=== PATIENT | male | born 1945 | race Caucasian/White ===

== ENCOUNTER 2019-08-10 08:44 | Inpatient (IN) | payer OTHER ==
[~2019-08-10] VITALS: Ht 182.9 cm; Wt 88.5 kg
[~2019-08-10 08:44] MED LIST: ALLOPURINOL 10100 M1 PO; ALLOPURINOL 30300 M1 PO; BACTRIM DS TAB1 EACH PO; BACTROBAN CREAM30 G1; CLEOCIN HCL300 MG PO; COLCHICINE 0.60.6 M1 PO; FLUZONE 2045 MCG/011; HYDROCODON-ACE1 EACH PO; KEFLEX500 MG PO; LISINOPRIL10 MG PO; MINOCYCLINE HC100 M2 PO; PERCOCET 5-3251 EACH PO; PNEUMOVAX25 MCG/0.5; PREDNISONE 10 M10 M1 PO; UNKNOWN BP MED
[2019-08-10 08:51] VITALS: BP 186/88
[2019-08-10 09:30] LABS: ABSOLUTE BASOPHILS 0.1 thou/uL (0.0-0.2); ABSOLUTE EOSINOPHILS 0.5 thou/uL (0.0-0.7); ABSOLUTE LYMPHOCYTES 0.4 thou/uL (0.8-5.3); ABSOLUTE MONOCYTES 0.6 thou/uL (0.0-1.2); ABSOLUTE NEUTROPHILS 4.9 thou/uL (1.6-8.1); BASOPHILS 1.2 %; EOSINOPHILS 7.1 %; HEMATOCRIT 25.6 % (42.0-52.0); HEMOGLOBIN 8.9 gm/dL (14.0-18.0); LYMPHOCYTES 6.9 %; MCH 32.8 pg (26.0-34.0); MCHC 34.9 g/dL (28.0-37.0); MCV 93.9 fL (80.0-100.0); MONOCYTES 9.1 %; MPV 6.9 fl. (7.2-11.1); NUCLEATED RBCS 0 /100WBC; PLATELET COUNT* 170 thou/uL (150-400); POLYS 75.7 %; RBC 2.73 mil/uL (4.50-6.00); RDW-CV 15.1 % (10.5-14.5); WBC 6.5 thou/uL (4.0-11.0)
[2019-08-10 09:38] LABS: CALCIUM 7.7 mg/dL (8.5-10.1); CREATININE 3.3 mg/dL (0.6-1.3); POTASSIUM 4.6 mmol/L (3.5-5.1)
[2019-08-10 09:49] LABS: ALBUMIN 2.8 g/dL (3.4-5.0); TOTAL BILIRUBIN 0.3 mg/dL (<0.1-1.0); TOTAL PROTEIN 6.2 g/dL (6.4-8.2)
[2019-08-10 11:42] VITALS: BP 164/86
[2019-08-10 12:00] VITALS: BP 177/92
[2019-08-10 12:10] VITALS: BP 128/69
--- NOTE | 2019-08-10 13:12 | NUR ---
PATIENT ARRIVED FROM THE ER THIS AFTERNOON AT 1210. PATIENT IS ALERT AND ORIENTED X 4. HE C/O SEVERE BILATERAL LOWER LEG PAIN. HIS LEGS HAVE 3+ EDEMA. PATIENT PLACED ON TELE MONITOR. TELE SHOWS A FIB. PATIENT DENIES CHEST PAIN AND SOA.
--- NOTE | 2019-08-10 14:54 | 2DMMODE ---
[place] [address] 2 D/M-MODE ECHOCARDIOGRAM Name: WAGNER HAMEED Room: [address] ADM IN M.R.#: [id number] Admission: 08/10/19 Attend Phys: Ranjit Giordano Discharge: Date of : 47 Date of Service: 08/10/19 1453 Report #: [id number] THIS REPORT FOR: //name// APPROVED REPORT Study performed: 08/10/2019 13:15:37 EXAM: Comprehensive 2D, Doppler, and color-flow Echocardiogram Patient Location: Bedside BSA: 2.06 HR: 97 bpm BP: 177/92 mmHg Other Information Study Quality: Good Indications Atrial Fibrillation 2D Dimensions IVSd: 13.94 (7-11mm) LVOT Diam: 18.67 (18-24mm) LVDd: 47.65 mm PWd: 11.53 (7-11mm) Ascending Ao: 34.59 (22-36mm) LVDs: 41.26 (25-40mm) Aortic Root: 34.10 mm Volumes Left Atrial Volume (Systole) LA ESV Index: 64.00 mL/m2 Aortic Valve AoV Peak Mat.: 2.97 m/s AO Peak Gr.: 35.19 mmHg LVOT Max P.55 mmHg AO Mean Gr.: 23.90 mmHg LVOT Mean P.87 mmHg LVOT Max V: 1.18 m/s AO V2 VTI: 68.31 cm LVOT Mean V: 0.79 m/s MIRANDA (VTI): 1.11 cm2 LVOT V1 VTI: 27.81 cm Mitral Valve E/A Ratio: 3.30 MV Decel. Time: 185.07 ms MV E Max Mat.: 1.31 m/s MV PHT: 53.67 ms MVA (PHT): 4.10 [place]2 [place] [address] 2 D/M-MODE ECHOCARDIOGRAM Name: WAGNER HAMEED Room: [address] IN [facility].#: [id number] Admission: 08/10/19 Attend Phys: Ranjit Giordano Discharge: Date of : 47 Date of Service: 08/10/19 1453 Report #: [id number] TDI E/Lateral E': 10.08 E/Medial E': 10.92 Medial E' Mat.: 0.12 m/s Lateral E' Mat.: 0.13 m/s Pulmonary Valve PV Peak Mat.: 1.24 m/s PV Peak Gr.: 6.19 mmHg Tricuspid Valve RAP Estimate: 5.00 mmHg TR Peak Gr.: 56.68 mmHg RVSP: 61.68 mmHg PA Pressure: 61.68 mmHg Left Ventricle The left ventricle is normal size. There is normal LV segmental wall motion. Mild concentric left ventricular hypertrophy. Left ventricular systolic function is normal. The left ventricular ejection fraction is within the normal range. LVEF is 60-65%. Right Ventricle Right ventricle is dilated. The right ventricular systolic function is normal. Atria Left atrium is severely dilated. Right atrium is dilated. Aortic Valve The Aortic valve is sclerotic. No aortic regurgitation is present. Mild aortic stenosis. Mitral Valve There is mitral annular calcification. Mild mitral regurgitation. No evidence of mitral valve stenosis. Tricuspid Valve The tricuspid valve is normal in structure. Mild tricuspid regurgitation. estimated pa pressure 60 mm hg Pulmonic Valve The pulmonary valve is normal in structure. There is no pulmonic valvular regurgitation. Great Vessels The aortic root is normal in size. IVC is normal in size and collapses >50% [place] [address] 2 D/M-MODE ECHOCARDIOGRAM Name: WAGNER HAMEED Room: [address] IN [facility]#: [id number] Admission: 08/10/19 Attend Phys: Ranjit Giordano Discharge: Date of : 47 Date of Service: 08/10/19 1453 Report #: [id number] Pericardium There is no pericardial effusion. <Conclusion> Mild concentric left ventricular hypertrophy. LVEF is 60-65%. Left atrium is severely dilated. Mild aortic stenosis. Mild mitral regurgitation. Mild tricuspid regurgitation. estimated pa pressure 60 mm hg <ELECTRONICALLY SIGNED> By: Chadd Hutchison MD, [facility] 08/10/19 [phone] Chadd Hutchison MD, FAC /INF
[2019-08-10 16:00] VITALS: BP 161/71
[2019-08-10 20:00] VITALS: BP 160/70
[2019-08-11] VITALS (8 sets, daily range): BP systolic 123–165; BP diastolic 56–80
--- NOTE | 2019-08-11 04:59 | NUR ---
PT HAS C/O PAIN TO BLE WITH 3+ PITTING EDEMA. PARTIAL RELIEF OBTAINED WITH PRN MEDICATION. PT IS HAVING EPISODES OF DECREASED HEART RATE LOW 28 WITH QUICK REBOUND BACK INTO THE 40'S, PT REMAINS ASYMPTOMATIC DURING THESE EPISODES. STILL COLLECTING URINE FOR 24 HOUR UNINE TO BE COMPLETED AT 1800. NO OTHER CONCERNS NOTED AT THIS TIME. CURRENTLY IN BED WITH CALL LIGHT WITHIN REACH.
[2019-08-11 05:30] LABS: HEMATOCRIT 22.1 % (42.0-52.0); HEMOGLOBIN 7.6 gm/dL (14.0-18.0); MCH 32.2 pg (26.0-34.0); MCHC 34.2 g/dL (28.0-37.0); MPV 7.7 fl. (7.2-11.1); NUCLEATED RBCS 0 /100WBC; PLATELET COUNT* 148 thou/uL (150-400); RBC 2.35 mil/uL (4.50-6.00); WBC 4.1 thou/uL (4.0-11.0)
[2019-08-11 05:52] LABS: ALBUMIN 2.2 g/dL (3.4-5.0); CALCIUM 7.4 mg/dL (8.5-10.1); CREATININE 3.4 mg/dL (0.6-1.3); POTASSIUM 4.3 mmol/L (3.5-5.1); TOTAL BILIRUBIN 0.3 mg/dL (<0.1-1.0)
[2019-08-11 06:41] LABS: ABSOLUTE EOSINOPHILS 0.5 thou/uL (0.0-0.7); ABSOLUTE LYMPHOCYTES 0.9 thou/uL (0.8-5.3); ABSOLUTE MONOCYTES 0.1 thou/uL (0.0-1.2); ABSOLUTE NEUTROPHILS 2.5 thou/uL (1.6-8.1); PLATELET ESTIMATE DECREASED
[2019-08-11 06:42] LABS: ANISOCYTOSIS 1+; POIKILOCYTOSIS 1+
[2019-08-11 07:00] LABS: CHOLESTEROL 152 mg/dL (<200); HDL CHOLESTEROL 115 mg/dL (>40); LDL CHOLESTEROL 33 mg/dL (<100); SERUM ASSESSMENT Clear; TC:HDL 1.3 Ratio (Not establshd); TRIGLYCERIDE 24 mg/dL (<150); VLDL 5 mg/dL (<40)
[2019-08-11 09:07] LABS: HEPATITIS B SURFACE AG Negative (Negative)
--- NOTE | 2019-08-11 09:12 | CON ---
[address] [address] CONSULTATION Name: WAGNER HAMEED Room: [address] IN M.R.#: [id number] Admission: 08/10/19 Attend Phys: Alberto Amos Discharge: Date of : 47 Report #: [id number] THIS REPORT FOR: //name// CC: FAM unknown [facility] Ranjit Giordano DATE OF SERVICE: 08/10/2019 CARDIOLOGY CONSULTATION HISTORY OF PRESENT ILLNESS: The patient is a 73-year-old single white male who I was asked to see in the hospital today after he was noted to have elevated swelling of his feet. Unfortunately, there are no old records available here at [place]. The patient primarily gets his care at the [facility]. He has a long history of hypertension and has been on Cozaar. Recently, he was having problems with cataracts. He went to the [facility] to have cataract surgery. Apparently, he was noted to be in atrial fibrillation and the surgery was canceled. He was given Eliquis for anticoagulation, but was not cardioverted. He denied history of palpitations, lightheadedness, syncope, or chest pain. His blood pressure is elevated and he was started on amlodipine. He was scheduled to be readmitted for his cataract surgery. Since his discharge from the [facility], he has noticed some increased shortness of breath and swelling of his feet. He denied orthopnea or PND. He has had no fever or cough. Denied any pain in his legs. PAST MEDICAL HISTORY: He has had no surgical procedures. He does have a history of hypertension. No diabetes. No hyperlipidemia. He does have a history of gout. MEDICATIONS: Include hydralazine, terazosin, amlodipine, allopurinol, Eliquis. ALLERGIES: HE HAS PREVIOUS INTOLERANCE TO INDOMETHACIN. FAMILY HISTORY: His brother had coronary angioplasty. SOCIAL HISTORY: He lives with a friend in [facility]. He is currently , used to work in food services. No smoking. Rarely drinks alcohol. REVIEW OF SYSTEMS: He has had no history of stroke, asthma, peptic ulcer disease, liver disease, kidney disease, cancer, chronic skin condition, psychiatric illness. PHYSICAL EXAMINATION: GENERAL: Revealed an elderly male, lying in bed, [place] [address] CONSULTATION Name: WAGNER HAMEED Room: [address]#: [id number] Admission: 08/10/19 Attend Phys: Alberto Amos Discharge: Date of : 47 Report #: [id number] VITAL SIGNS: Blood pressure is 160/80, pulse is 60. He was afebrile. HEENT: He was anicteric. Conjunctivae are pink. Mucous membranes are moist. NECK: Veins appeared mildly distended. No carotid bruits. CHEST: Clear to auscultation. CARDIAC: Irregular rhythm, grade 3 holosystolic murmur at the apex. ABDOMEN: Soft. EXTREMITIES: Had severe pitting edema up to the mid tibial area. SKIN: Cool and dry. NEUROLOGIC: Nonfocal. DIAGNOSTIC DATA: His ECG on admission showed atrial fibrillation with a slow ventricular response rate, nonspecific T-wave changes. His workup in the Emergency Room; he had a portable chest x-ray that showed cardiomegaly, some atelectasis, no pulmonary edema. LABORATORY DATA: Sodium 136, BUN 37, creatinine 3.3; it was 1.4 in 2013. Albumin is only 2.8. Troponin 0.07. BNP 13,824. White blood cell count 6.5, hemoglobin 8.9, hematocrit 25.6. IMPRESSION AND RECOMMENDATIONS: 1. Atrial fibrillation. Suspect sick sinus syndrome since the rate is controlled and the patient is on no medications that slow the ventricular response rate. If he develops symptomatic bradycardia, he would require a pacemaker. I would continue anticoagulation with Eliquis, but I would decrease the dose to 2.5 mg every 12 hours because of chronic kidney disease. 2. Chronic kidney disease. 3. Lower extremity edema. Suspect venous insufficiency. I would discontinue amlodipine and give Lasix. 4. Murmur of mitral regurgitation. Recommend echocardiogram. 5. Hypertension. The patient is on hydralazine, alpha nickolas and calcium nickolas. I would not recommend beta-nickolas because of slow rate of atrial fibrillation. I would consider adding clonidine. 6. History of gout. 7. Anemia. No history of bleeding. <ELECTRONICALLY SIGNED> By: Chadd Hutchison MD, FACC 08/11/19 0912 1238 [id number] Hutchison MD, FACC /nt
--- NOTE | 2019-08-11 15:48 | NUR ---
Pt speaking with cardiac rehab nurse when CM went to assess, will f/u later
--- NOTE | 2019-08-11 18:50 | NUR ---
ASSUMED PT CARE REPORT RECEIVED FROM NURSE. PT IS AOX4 ON RA. NO COMPLAINT. AFIB ON CHANGE CONTROL ANALYST. AARON HEART RATE IN LOW 30S. PT ASYMPTOMATIC. CLONIDINE NOT GIVEN DUE TO LOW HR. 24 HR URINE COLLECTION BAG SENT TO LAB .CALL LIGHT AT REACH
--- NOTE | 2019-08-12 01:36 | NUR ---
INITAL ASSESMENT COMPLETED AT 1999. PT PLEASANT AND COOPERATIVE AT THAT TIME. PT DENIED PAIN OR DISCOMFORT. 24 HOUR URINE COMPLETED PRIOR TO ICT HELP DESK OFFICER. CALL LIGHT IN REACH, PT USING APPROPRIATELY.
[2019-08-12 05:28] VITALS: BP 141/65
[2019-08-12 05:42] LABS: ALBUMIN 2.4 g/dL (3.4-5.0); CALCIUM 7.4 mg/dL (8.5-10.1); CREATININE 3.8 mg/dL (0.6-1.3); POTASSIUM 4.7 mmol/L (3.5-5.1); TOTAL BILIRUBIN 0.2 mg/dL (<0.1-1.0); TOTAL PROTEIN 5.5 g/dL (6.4-8.2)
--- NOTE | 2019-08-12 06:34 | NUR ---
PT'S IV IN RIGHT AC DISLODGED. STARTED 20 GUAGE SALINE LOCK IN RIGHT FOREARM.
[2019-08-12 08:26] VITALS: BP 145/80
--- NOTE | 2019-08-12 10:30 | CON ---
[address] [address] CONSULTATION Name: WAGNER HAMEED Room: [address] IN M.R.#: [id number] Admission: 08/10/19 Attend Phys: Alberto Amos Discharge: Date of : 47 Report #: [id number] THIS REPORT FOR: //name// CC: FAM unknown [facility] Ranjit Giordano DATE OF SERVICE: 08/10/2019 REQUESTING PHYSICIAN: Ranjit Giordano DO REASON FOR CONSULTATION: Acute kidney injury. HISTORY OF PRESENT ILLNESS: The patient is a 73-year-old man who normally follows at the [facility]. He has a history of hypertension and gout. He was apparently recently started on hydralazine, terazosin and amlodipine. He also takes apixaban and allopurinol. He also was taking lisinopril 10 mg a day. He presents with complaints of progressive weight gain and increased lower extremity edema. He gained about 15-20 pounds over the last several weeks and also developed edema of his scrotum. In the Emergency Room, it was found that his creatinine was 3.3. His creatinine was 1.4 in 2012. I do not have any values between 2012 and now. ____, he does have some chronic kidney disease, at least stage 3. His medications prior to admission as I mentioned earlier. SOCIAL HISTORY: No alcohol abuse and no tobacco abuse. REVIEW OF SYSTEMS: Positive for symptoms mentioned earlier. He also has some mild dyspnea on exertion. Rest of systems reviewed and negative. PHYSICAL EXAMINATION: GENERAL: Awake, alert, and oriented. VITAL SIGNS: Blood pressure 164/86, heart rate is 61, afebrile. HEENT: Pupils are round. NECK: Supple. LUNGS: Clear to auscultation bilaterally. CARDIOVASCULAR: Regular rate. ABDOMEN: Soft. EXTREMITIES: He had got 2 to 4+ bilateral edema of his legs. LABORATORY DATA: Serum sodium 136, potassium 4.6, chloride 103, carbon dioxide 23, BUN 3.7, creatinine 3.7. Urine creatinine 3.3 and calcium is 7.7. ProBNP is 13,824, total protein 60, albumin 2.8, hemoglobin is 8.9. Chest x-ray fairly unremarkable, except for [place] [address] CONSULTATION Name: WAGNER HAMEED Room: [address] IN [facility].#: [id number] Admission: 08/10/19 Attend Phys: Alberto Amos Discharge: Date of : 47 Report #: [id number] ASSESSMENT: 1. Acute kidney injury on top of the chronic kidney disease workup was ordered. No obvious reason for acute kidney injury, except the fact that he was started on several new medications. 2. Hypertension. 3. Edema. PLAN: Stop nephrotoxic medications. Obtain renal ultrasound, obtain serologies, and obtain urinalysis. Thank you very much for asking my opinion on acute kidney injury. <ELECTRONICALLY SIGNED> By: Sulaiman Gu MD 08/12/19 1030 1205 [id number] Gu MD /nt
[2019-08-12 12:09] LABS: URINE PROTEIN 425 mg/24 hr (30-150); URINE PROTEIN (MG/DL) 141.8 mg/dL (Not Estab.)
--- NOTE | 2019-08-12 15:28 | NUR ---
Pt is A&O. Resides at home. Independent. No DME. No hx of HH or SNF. Renal and cardiology following. Goal is home at dc. Following.
[2019-08-12 16:00] VITALS: BP 168/69
[2019-08-12 19:40] VITALS: BP 137/63
[2019-08-12 21:10] LABS: ANA INTERPRETATION Negative (())
[2019-08-13] VITALS: BP 135/50
[2019-08-13 04:00] VITALS: BP 145/42
[2019-08-13 06:18] LABS: HEMATOCRIT 24.7 % (42.0-52.0); HEMOGLOBIN 8.5 gm/dL (14.0-18.0)
[2019-08-13 06:27] LABS: CALCIUM 7.5 mg/dL (8.5-10.1); CREATININE 3.9 mg/dL (0.6-1.3); POTASSIUM 4.6 mmol/L (3.5-5.1)
[2019-08-13 07:00] VITALS: BP 125/68
[2019-08-13 12:00] VITALS: BP 138/72
[2019-08-13 16:00] VITALS: BP 121/67
--- NOTE | 2019-08-13 18:05 | NUR ---
PT HAS CONTINUES TO BE NON COMPLIANT WITH FLUID RESTRICTION. PT EDUCATED ON THE IMPRTANCE OF FLUID RESTRICTION, VOICES UNDERSTANDING BUBT SAYS HIS MOUTH IS TOO DRY.
[2019-08-13 20:00] VITALS: BP 133/61
[2019-08-14] VITALS: BP 129/53
[2019-08-14 04:00] VITALS: BP 126/60
--- NOTE | 2019-08-14 05:14 | NUR ---
ASSUMED CARE OF PT AFTER REPORT AT 1930. PT A&OX4. VSS. PHYSICAL ASSESSMENT COMPLETED AND CHARTED. PT ON RA. PT TRACING AFIB HR 30-40'S. PT UPADLIB TO RESTROOM. REITERATE FLUID RESTRICTIONS. PT COMMUNICATES UNDERSTANDING BUT STILL NEEDS TO REINFORCE. PT COMPLAINED OF BILATERAL LEG PAIN-MEDS GIVEN PER MAR. CALL LIGHT WITHIN REACH.
[2019-08-14 05:41] LABS: ABSOLUTE BASOPHILS 0.1 thou/uL (0.0-0.2); ABSOLUTE EOSINOPHILS 0.5 thou/uL (0.0-0.7); ABSOLUTE LYMPHOCYTES 0.6 thou/uL (0.8-5.3); ABSOLUTE MONOCYTES 0.4 thou/uL (0.0-1.2); ABSOLUTE NEUTROPHILS 3.3 thou/uL (1.6-8.1); BASOPHILS 1.3 %; EOSINOPHILS 9.5 %; HEMATOCRIT 21.9 % (42.0-52.0); HEMOGLOBIN 7.8 gm/dL (14.0-18.0); LYMPHOCYTES 12.9 %; MCH 33.4 pg (26.0-34.0); MCHC 35.5 g/dL (28.0-37.0); MCV 94.3 fL (80.0-100.0); MONOCYTES 8.6 %; MPV 7.9 fl. (7.2-11.1); NUCLEATED RBCS 0 /100WBC; PLATELET COUNT* 168 thou/uL (150-400); POLYS 67.7 %; RBC 2.32 mil/uL (4.50-6.00); RDW-CV 14.9 % (10.5-14.5); WBC 4.9 thou/uL (4.0-11.0)
[2019-08-14 05:56] LABS: CALCIUM 7.1 mg/dL (8.5-10.1); POTASSIUM 4.6 mmol/L (3.5-5.1)
[2019-08-14 07:00] VITALS: BP 118/55
[2019-08-14 08:51] LABS: URINE BILIRUBIN NEGATIVE (Negative); URINE BLOOD NEGATIVE (Negative); URINE CLARITY CLEAR; URINE COLOR STRAW; URINE GLUCOSE-RANDOM NEGATIVE (Negative); URINE KETONES NEGATIVE (Negative); URINE LEUKOCYTES NEGATIVE (Negative); URINE NITRITE NEGATIVE (Negative); URINE PROTEIN 2+ (Negative); URINE SPECIFIC GRAVITY 1.015 (1.005-1.030); URINE UROBILINOGEN 0.2 E.U./dl (0.2-1.0)
[2019-08-14 09:03] LABS: BACTERIA 1-9 Few /HPF (None Seen); CASTS None Seen /LPF (None Seen); CRYSTALS None Seen /LPF (None Seen); MUCUS None Seen strn/LPF (None Seen); SQUAMOUS 0-3 Few /LPF (0-3); URINE RBC None Seen /HPF (0-2); URINE WBC 0-5 Rare /HPF (0-5)
--- NOTE | 2019-08-14 10:00 | NUR ---
INITAL ASSESSMENT COMPLETED CHARTED. TRACING AFIB WITH HR IN THE 30-40'S. PT EDUCATED AGAIN ON IMPORTANCE OF FLUID RESTRICTION, VOICES UNDERSTANDING. REFER TO COMPUTER CHARTING FOR FURTHER DETAILS. HOURLY ROUNDING IN PLACE FOR PT SAFETY. CLWR.
[2019-08-14 12:00] VITALS: BP 108/53
[2019-08-14 16:00] VITALS: BP 141/70
[2019-08-14 17:09] LABS: IgA 168 mg/dL (61-437); IgG 563 mg/dL (700-1600); IgM 50 mg/dL (15-143)
[2019-08-14 20:00] VITALS: BP 149/60
[2019-08-15] VITALS (7 sets, daily range): BP systolic 118–146; BP diastolic 48–61
--- NOTE | 2019-08-15 06:10 | NUR ---
ASSUMED CARE OF PT AFTER REPORT AT 1930. PT A&OX4. VSS. PHYSICAL ASSESSMENT COMPLETED AND CHARTED. PT ON RA. PT TRACING AFIB HR 30-50'S. PT UPADLIB TO RESTROOM. PT COMPLAINED OF BILATERAL LEG-MED GIVEN PER SEP. MAINTAINED ON LASIX DRIP. PT INSTRUCTED ON NPO POST MIDNIGHT FOR RENAL BIOPSY TODAY. COMMUNICATES UNDERSTANDING. PT ABLE TO SLEEP WELL ON BED. CALL LIGHT WITHIN REACH.
[2019-08-15 07:05] LABS: ABSOLUTE BASOPHILS 0.1 thou/uL (0.0-0.2); ABSOLUTE EOSINOPHILS 0.4 thou/uL (0.0-0.7); ABSOLUTE LYMPHOCYTES 0.6 thou/uL (0.8-5.3); ABSOLUTE MONOCYTES 0.4 thou/uL (0.0-1.2); ABSOLUTE NEUTROPHILS 3.1 thou/uL (1.6-8.1); BASOPHILS 1.4 %; EOSINOPHILS 8.9 %; HEMATOCRIT 21.7 % (42.0-52.0); HEMOGLOBIN 7.3 gm/dL (14.0-18.0); LYMPHOCYTES 13.3 %; MCH 32.2 pg (26.0-34.0); MCHC 33.8 g/dL (28.0-37.0); MCV 95.1 fL (80.0-100.0); MONOCYTES 9.6 %; MPV 8.2 fl. (7.2-11.1); NUCLEATED RBCS 0 /100WBC; PLATELET COUNT* 171 thou/uL (150-400); POLYS 66.8 %; RBC 2.28 mil/uL (4.50-6.00); RDW-CV 14.9 % (10.5-14.5); WBC 4.6 thou/uL (4.0-11.0)
[2019-08-15 07:20] LABS: ALBUMIN 2.4 g/dL (3.4-5.0); CREATININE 4.3 mg/dL (0.6-1.3); POTASSIUM 4.2 mmol/L (3.5-5.1); TOTAL BILIRUBIN 0.2 mg/dL (<0.1-1.0); TOTAL PROTEIN 5.4 g/dL (6.4-8.2)
--- NOTE | 2019-08-15 09:00 | NUR ---
INITAL ASSESSMENT COMPLETED CHARTED. TRACING AFIB ON MONITOR, RATE IN 30'S. PT ASYMPTOMATIC. PT DENIES CP, SOA, N/V/D. REFER TO COMPUTER CHARTING FOR FURTHER DETAILS. HOURLY ROUNDING IN PLACE FOR PT SAFETY. CLWR.
[2019-08-15 09:21] LABS: PROTIME 10.3 Seconds (9.20-11.50)
[2019-08-15 10:08] LABS: GLOMERULR BASEM MEMBRN AB 2 units (0-20)
[2019-08-15 12:11] LABS: KAPPA FREE LIGHT CHAINS 99.9 mg/L (3.3-19.4); LAMBDA FREE LIGHT CHAINS 64.2 mg/L (5.7-26.3)
--- NOTE | 2019-08-15 15:07 | NUR ---
DHRUV spoke with regarding dispo. informed that Pt may end up needing outpt HD, renal following.
[2019-08-16] VITALS (11 sets, daily range): BP systolic 135–170; BP diastolic 52–78
--- NOTE | 2019-08-16 04:20 | NUR ---
ASSUMED CARE OF PT AFTER REPORT AT 1930. PT A&OX4. VSS. PHYSICAL ASSESSMENT COMPLETED AND CHARTED. PT ON RA. PT TRACING AFIB ON TELE. PT UPADLIB TO RESTROOM. REMINDED ABOUT FLUID RESTRICTION. INSTRUCTED ON NPO POSTMIDNIGHT FOR RENAL BIOPSY TODAY. COMMUNICATES UNDERSTANDING. PT ABLE TO SLEEP WELL ON BED. CALL LIGHT WITHIN REACH.
[2019-08-16 07:29] LABS: ABSOLUTE BASOPHILS 0.1 thou/uL (0.0-0.2); ABSOLUTE EOSINOPHILS 0.4 thou/uL (0.0-0.7); ABSOLUTE LYMPHOCYTES 0.6 thou/uL (0.8-5.3); ABSOLUTE MONOCYTES 0.4 thou/uL (0.0-1.2); ABSOLUTE NEUTROPHILS 2.7 thou/uL (1.6-8.1); BASOPHILS 1.2 %; EOSINOPHILS 9.5 %; HEMATOCRIT 21.5 % (42.0-52.0); HEMOGLOBIN 7.5 gm/dL (14.0-18.0); LYMPHOCYTES 15.3 %; MCH 32.9 pg (26.0-34.0); MCHC 34.8 g/dL (28.0-37.0); MCV 94.6 fL (80.0-100.0); MONOCYTES 10.4 %; MPV 8.1 fl. (7.2-11.1); NUCLEATED RBCS 0 /100WBC; PLATELET COUNT* 156 thou/uL (150-400); POLYS 63.6 %; RBC 2.27 mil/uL (4.50-6.00); RDW-CV 14.7 % (10.5-14.5); WBC 4.2 thou/uL (4.0-11.0)
[2019-08-16 07:46] LABS: ALBUMIN 2.4 g/dL (3.4-5.0); CALCIUM 7.4 mg/dL (8.5-10.1); CREATININE 4.3 mg/dL (0.6-1.3); POTASSIUM 4.1 mmol/L (3.5-5.1); TOTAL BILIRUBIN 0.2 mg/dL (<0.1-1.0); TOTAL PROTEIN 5.4 g/dL (6.4-8.2)
--- NOTE | 2019-08-16 08:24 | NUR ---
Per nurse, Pt's sister informed nurse yesterday that Pt is actually homeless, Pt had informed CM that he resided at home with family. CM to f/u today
--- NOTE | 2019-08-16 08:36 | NUR ---
INITAL ASSESSMENT COMPLETED CHARTED. TRACING AFIB, BRADYCARDIC. PT IS CURRENTLY NPO AWAITNG RENAL BIOPSY THIS MORNING. REFER TO COMPUTER CHARTING FOR FURTHER DETAILS. HOURYL ROUNDING IN PLACE FOR PT SAFETY. CLWR.
[2019-08-17] VITALS: BP 135/59
[2019-08-17 04:00] VITALS: BP 155/78
--- NOTE | 2019-08-17 05:55 | NUR ---
ASSUMED CARE OF PT AFTER REPORT AT 1930. PT A&OX4. VSS. PHYSICAL ASSESSMENT COMPLETED AND CHARTED. PT ON RA. PT TRACING AFIB HR 30-50'S. PT WITH EPISODE OF 4 SECOND PAUSE, ASYMPTOMATIC-DR VANEGAS MADE AWARE. PT COMPLAINED OF BILATERAL LEG PAIN-MEDS GIVEN PER SEP. PT ABLE TO SLEEP WELL ON BED. CALL LIGHT WITHIN REACH.
[2019-08-17 06:43] LABS: ABSOLUTE BASOPHILS 0.1 thou/uL (0.0-0.2); ABSOLUTE EOSINOPHILS 0.5 thou/uL (0.0-0.7); ABSOLUTE LYMPHOCYTES 0.7 thou/uL (0.8-5.3); ABSOLUTE MONOCYTES 0.5 thou/uL (0.0-1.2); ABSOLUTE NEUTROPHILS 3.2 thou/uL (1.6-8.1); BASOPHILS 1.5 %; EOSINOPHILS 9.6 %; HEMATOCRIT 22.2 % (42.0-52.0); HEMOGLOBIN 7.7 gm/dL (14.0-18.0); MCH 32.6 pg (26.0-34.0); MCHC 34.6 g/dL (28.0-37.0); MCV 94.3 fL (80.0-100.0); MONOCYTES 9.9 %; MPV 8.2 fl. (7.2-11.1); NUCLEATED RBCS 0 /100WBC; PLATELET COUNT* 159 thou/uL (150-400); RBC 2.35 mil/uL (4.50-6.00); RDW-CV 15.4 % (10.5-14.5)
[2019-08-17 07:25] LABS: ALBUMIN 2.4 g/dL (3.4-5.0); CALCIUM 7.4 mg/dL (8.5-10.1); CREATININE 3.8 mg/dL (0.6-1.3); POTASSIUM 4.1 mmol/L (3.5-5.1); TOTAL BILIRUBIN 0.2 mg/dL (<0.1-1.0); TOTAL PROTEIN 5.4 g/dL (6.4-8.2)
[2019-08-17 08:00] VITALS: BP 135/62
--- NOTE | 2019-08-17 09:21 | NUR ---
CM had a long talk with Pt regarding disposition. Pt states that he has been staying with a friend for the past 2 months, but states that the friend's home is possibly going to be repossessed, Pt states that friend is trying to fight it, but is unsure if he will be successful. Pt has 2 sisters, but neither have room for his to live there. Pt states that he doesn't want to ask his son to stay with him, son has a and 3 kids. Pt states that he gets about $1000/month from social security and would like to get his own place near his son. CM to look for housing options for Pt in/near [place]. CM discussed possibility of Pt needing outpt dialysis and informed that he would need to have a place to live. CM discussed LTC, but Pt is not open to living in a [facility]. Following.
[2019-08-17 12:00] VITALS: BP 132/55
--- NOTE | 2019-08-17 13:01 | NUR ---
Nutrition: Pt admitted with ARF. H/o CKD III, HTN. Wt admit 185#, trending up now 200#. 3+ edema in legs. Renal diet and fluid restriction ordered. Pt stated he is not getting full on meals - gave him menu and explained how to call kitchen and order if he desires more on meal tray. He stated good appetite. Meds noted. Labs noted, alb 2.4, prealb 31.4, BG 125, BUN 74, cr 3.8, GFR 16. No other nutrition interventions at this time. Pt understands menu and diet. Mild risk.
[2019-08-17 16:00] VITALS: BP 166/86
[2019-08-17 19:50] VITALS: BP 171/63
--- NOTE | 2019-08-17 20:10 | NUR ---
ASSUMED PT CARE AT 0730. ASSESSMENT COMPLETED CHARTED. ABLE TO MAKE NEEDS KNOWN. UP AD [place]. WENT TO DIALYSIS TODAY FOR 3 OR 4 HOURS AND TOOK 1.5 L OFF. RESTING IN BED AT THIS TIME. C/O PAIN IN LEGS, GAVE PRN PAIN MEDICATIONS NEEDED. CALL LIGHT WITHIN REACH. WILL CONTINUE TO MONITOR.
[2019-08-18 00:10] VITALS: BP 169/68
[2019-08-18 04:30] VITALS: BP 145/63
[2019-08-18 05:34] LABS: CALCIUM 7.6 mg/dL (8.5-10.1); CREATININE 2.9 mg/dL (0.6-1.3); POTASSIUM 3.8 mmol/L (3.5-5.1)
--- NOTE | 2019-08-18 07:51 | NUR ---
PT CARE ASSUMED AT 1930. SAT MAINTAINED IN RA. C/O PAIN, MEDICATION GIVEN PER EMAR. ALERT AND ORIENTED X4. CALL LIGHT WITHIN REACH AND BED IN LOW POSITION. HOURLY ROUNDING DONE FOR PT SAFETY.
[2019-08-18 08:00] VITALS: BP 141/67
[2019-08-18 12:00] VITALS: BP 108/62
--- NOTE | 2019-08-18 16:07 | PATH ---
[address] [address] PATHOLOGY RPT PROCEDURE Name: DIOGENES HAMEED Room: [address] IN M.R.#: [id number] Admission: 08/10/19 Date of : 47 Discharge: Report #: [id number] Path Case #: [id number] LCA Accession Number: [id number] . 01 Material submitted: . kidney - LEFT KIDNEY BIOPSY. Modifiers: left . 01 Clinical history: . Renal failure . 02 Diagnosis: Special studies report received from [facility], [address] [place] [address], [place] [address], on case [id number], labeled with their number [id number], dated 08/17/2019. . Specimen submitted: By Elisabet Jiménez MD For Kidney, biopsy . DIAGNOSIS: . Arterionephrosclerosis. . Comment: There is no evidence of an immune complex-mediated glomerulonephritis. . Chronicity Summary Total Glomeruli- 49 Global Glomerulosclerosis- 46 Segmental Sclerosis- Absent Interstitial Fibrosis- Severe Tubular Atrophy- Severe Arterial Intimal Fibrosis- Severe Arteriolar Hyalinosis- Severe . Clinical History: This 73-year-old male presented with renal failure. He had anasarca with an albumin of 2.4. Twenty-four hour urine showed 0.4 g per 24-hours. Serologic studies are negative. . Gross Description: Received from [facility] via [facility] are two specimen bottles; one bottle contains formalin and the other contains Chaparro's fixative. The bottles are labeled with the patient's name (Diogenes Hameed) and date of (1945). . Received in formalin is one piece of bazzi tissue measuring 1.6 x 0.1 x 0.1 cm (dissected). Two pieces are submitted for electron microscopy and the remainder of the tissue is submitted in its entirety [place] [address] PATHOLOGY RPT PROCEDURE Name: DIOGENES HAMEED EDMOND Room: [address] IN [facility].#: [id number] Admission: 08/10/19 Date of : 47 Discharge: Report #: [id number] Path Case #: [id number] . Received in Chaparro's fixative is one piece of bazzi tissue measuring 1.9 x 0.1 x 0.1 cm. The specimen is submitted in its entirety for immunofluorescence microscopy. . Microscopic Description: LIGHT MICROSCOPY: . Sections of kidney consist of about 50% cortex. There are 39 glomeruli, 36 of which are globally sclerotic. No glomeruli show segmental sclerosis. No hypercellularity or crescent formation is seen. No necrotizing lesions are observed. The mesangium is not expanded. The capillary loops do not show spikes, bubbles or double contours. There is severe tubular atrophy and dropout with interstitial fibrosis involving about 80% of the interstitial compartment. Mild inflammation is seen in the scarred areas. There is severe intimal fibrosis. Severe arteriolar hyalinosis is seen. No vasculitis is present. A Congo red stain for amyloid is negative. Toluidine blue stained sections show three glomeruli, all three of which are globally sclerotic. . Standard of care requirements for proper analysis of renal biopsies mandates serial sections, and PAS, Saavedra silver, trichrome and SMMT stains at multiple levels. PAS stains are used to evaluate various aspects of the glomerular, tubular, and vascular basement membranes. Saavedra silver stains are used to evaluate thickening, reduplication, "spiking" or "bubbling" of the glomerular basement membrane. Toluidine blue stained sections highlight glomerular basement membranes and demonstrates unusual types of deposits. It also reveals details of tubular epithelial cells and aids in the analysis of vascular lesions. Sadia trichrome stains are used to evaluate interstitial fibrosis and basement membrane deposits. The SMMT stain helps evaluate basement membrane changes, immune deposits and tubulointerstitial scarring. Controls are routinely run on all special stains and are verified for acceptability. A review of the technical quality of routine slides is made before results are reported. . . IMMUNOFLUORESCENCE: Sections of kidney consist of about 90% cortex. There are 39 glomeruli, 36 of which are globally sclerotic. The sections are stained for IgG, IgM, IgA, C3, C1q, albumin, fibrinogen, and kappa and lambda light chains. [place] and lambda light chains stain equally in small casts and in tubulointerstitial regions. The remaining stains are essentially negative. . Positive and negative controls are run on all immunofluorescent stains and are verified for acceptability before results are reported. Internal antigens serve as positive controls. . ELECTRON MICROSCOPY: [place] [address] PATHOLOGY RPT PROCEDURE Name: DIOGENES HAMEED Room: [address] ADM IN M.R.#: [id number] Admission: 08/10/19 Date of : 47 Discharge: Report #: [id number] Path Case #: [id number] Two blocks prepared. No intact glomeruli are available for ultrastructural examination. . Special procedures including immunofluorescence and electron microscopy correlate with the light microscopy findings. . Note: Some of the tests reported here may have been developed and performance characteristics determined by [facility]. They have not been cleared or approved by the U.S. Food and Drug Administration (FDA). The FDA does not require this test to go through premarket FDA review. This test is used for clinical purposes. It should not be regarded as investigational or for research. [facility] is certified under the Clinical Laboratory Improvement Amendments of 1988 (CLIA) as qualified to perform high complexity clinical laboratory testing. . Physician/Physician's office called on 08/17/2019 at 3:33 PM Central. . *I have reviewed the clinical history, the pertinent gross findings, all microscopic materials, discussed the case with the clinician when appropriate, and have rendered the final diagnosis. . . Final Diagnosis performed by Reji Mack M.D. Electronically signed 08/17/2019 5:25:53 PM . . A complete copy of the report is on file. . Professional and technical services performed by [facility] at [address] [place] [address], [facility], [place], [address]. . (EMMANUEL:douglas 08/18/2019) . AZJ 08/18/2019 1146 Local . 02 Electronically signed: . Eleno Friedman MD, Pathologist NPI- [id number] . 01 Gross description: . The specimen is received in formalin, labeled "Diogenes Hameed, left renal biopsy". Received is a single needle core of pale bazzi soft tissue measuring 1.7 cm in length by 0.1 cm in diameter. The specimen is forwarded to an outside laboratory for further processing. . Also received is a container of Chaparro's fixative, labeled "Diogenes Hameed, [place] [address] PATHOLOGY RPT PROCEDURE Name: DIOGENES HAMEED Room: [address] IN M.R.#: [id number] Admission: 08/10/19 Date of : 47 Discharge: Report #: [id number] Path Case #: [id number] left kidney biopsy". Received is a single needle core of pale bazzi soft tissue measuring 1.8 cm in length by 0.1 cm in diameter. The specimen is forwarded to an outside laboratory for further processing. (CAA; 08/16/2019) QAC/QAC 08/16/2019 1552 Local . 02 Pathologist provided ICD-10: I12.9 . 02 CPT . 049864 Specimen Comment: A courtesy copy of this report has been sent to [phone] Specimen Comment: [phone] Specimen Comment: Report sent to / DR SUDHOLT Performed at: 01 [facility] [place] [address], [place], [place] [id number] MD Rich James MD Phone: [phone] Performed at: [address] [facility] [address] [address]a [address], [place], [place] [id number] MD Eleno Friedman MD Phone: [phone]
[2019-08-18 20:10] VITALS: BP 180/82
[2019-08-19 00:31] VITALS: BP 173/83
[2019-08-19 04:27] VITALS: BP 161/75
--- NOTE | 2019-08-19 06:36 | NUR ---
PT CARE ASSUMED AT 1930. SAT MAINTAINED IN RA. ALERT AND ORIENTED X4. C/O PAIN, MEDICATION GIVEN PER EMAR. CALL LIGHT WITHIN REACH AND BED IN LOW POSITION. HOURLY ROUNDING DONE FOR PT SAFETY.
[2019-08-19 08:00] VITALS: BP 171/81
[2019-08-19 09:23] LABS: ABSOLUTE LYMPHOCYTES 0.5 thou/uL (0.8-5.3); ABSOLUTE MONOCYTES 0.7 thou/uL (0.0-1.2); ABSOLUTE NEUTROPHILS 5.2 thou/uL (1.6-8.1); BASOPHILS 0.5 %; EOSINOPHILS 0.5 %; HEMOGLOBIN 8.4 gm/dL (14.0-18.0); LYMPHOCYTES 8.2 %; MCH 32.9 pg (26.0-34.0); MCHC 34.9 g/dL (28.0-37.0); MCV 94.2 fL (80.0-100.0); MONOCYTES 10.2 %; MPV 8.6 fl. (7.2-11.1); NUCLEATED RBCS 0 /100WBC; PLATELET COUNT* 160 thou/uL (150-400); POLYS 80.6 %; RBC 2.55 mil/uL (4.50-6.00); RDW-CV 15.2 % (10.5-14.5); WBC 6.4 thou/uL (4.0-11.0)
[2019-08-19 09:34] LABS: CALCIUM 7.3 mg/dL (8.5-10.1); CREATININE 3.1 mg/dL (0.6-1.3); POTASSIUM 4.1 mmol/L (3.5-5.1)
--- NOTE | 2019-08-19 11:20 | NUR ---
CM spoke with Pt regarding need for outpt dialysis set up, Pt is tearful and sad regarding his dx. Pt unsure where he will live. CM assisted Pt in exploring housing options and provided Pt with a list of low income apartments in [place]. Pt to speak with son regarding if he can stay for a short period of time with him or if he could help Pt get into an apartment of his own. CM offered SNF and Pt declined, Pt is up and independent. Pt may have to return to his friend's home until alternate placement can be located. Pt stated that he does not drive d/t his "bad eyes" that he needs to have surgery on. CM discussed [employer] and provided [employer] info. CM faxed referral to [facility], Pt to decide if he wants to complete outpt dialysis, once he speaks with his son. Awaiting chair time. Following.
[2019-08-19 12:00] VITALS: BP 171/63
[2019-08-19 16:00] VITALS: BP 154/65
--- NOTE | 2019-08-19 19:03 | NUR ---
ASSUMED PT CARE AT 0730. ASSESSMENT COMPLETED CHARTED. ABLE TO MAKE NEEDS KNOWN. UP AD ANSON IN ROOM. HAD DIALYSIS CATHEDER PLACED, POSITIVE BRUIT AND THRILL. RESTING IN BED AFTER SURGERY. PT DEPRESSED AND UPSET ABOUT DIALYSIS NEED AND EASILY FRUSTRATED. CALL LIGHT WITHIN REACH. WILL CONTINUE TO MONITOR.
[2019-08-19 20:00] VITALS: BP 131/50
[2019-08-20] VITALS: BP 160/74
[2019-08-20 03:56] VITALS: BP 136/68
--- NOTE | 2019-08-20 06:32 | NUR ---
PT WAS FRUSTERATED AT THE START OF THE SHIFT WITH HAVING TO WEAR OXYGEN AND BEING ON THE CONT PULSE OX. PT INFORMED RT THAT HE REFUSED TO WEAR THE PULSE OX ANY LONG. RT WAS ABLE TO TITRATE OFF OF OXYGEN WITHOUT DIFFICULTY. PT WAS ABLE TO SLEEP AFTER THAT. PT IS CURRENTLY ASLEEP IN BED WITH CALL LIGHT WITHIN REACH.
[2019-08-20 16:47] VITALS: BP 145/55
[2019-08-20 20:00] VITALS: BP 179/86
[2019-08-21] VITALS: BP 143/58
--- NOTE | 2019-08-21 04:46 | NUR ---
ASSUMED CARE OF PT AFTER REPORT AT 1930. PT A&OX4. VSS. PHYSICAL ASSESSMENT COMPLETED AND CHARTED. PT ON RA. PT ON MEDSURG STATUS. PT UPADLIB TO RESTROOM. PT COMPLAINED OF BILATERAL LEG PAIN-MED GIVEN PER SEP. PT ABLE TO SLEEP WELL ON BED. CALL LIGHT WITHIN REACH.
[2019-08-21 04:47] LABS: HEMATOCRIT 23.6 % (42.0-52.0); HEMOGLOBIN 8.1 gm/dL (14.0-18.0); MCH 32.6 pg (26.0-34.0); MCHC 34.3 g/dL (28.0-37.0); MCV 94.9 fL (80.0-100.0); MPV 8.3 fl. (7.2-11.1); RBC 2.49 mil/uL (4.50-6.00); RDW-CV 15.3 % (10.5-14.5); WBC 7.3 thou/uL (4.0-11.0)
[2019-08-21 05:20] LABS: ALBUMIN 2.8 g/dL (3.4-5.0); CALCIUM 7.8 mg/dL (8.5-10.1); CREATININE 3.1 mg/dL (0.6-1.3); MAGNESIUM 1.8 mg/dL (1.8-2.4); PHOSPHORUS* 4.2 mg/dL (2.5-4.9); POTASSIUM 4.8 mmol/L (3.5-5.1); TOTAL BILIRUBIN 0.4 mg/dL (<0.1-1.0); TOTAL PROTEIN 6.2 g/dL (6.4-8.2)
[2019-08-21 07:30] VITALS: BP 163/49
[2019-08-21 11:16] VITALS: BP 141/63
[2019-08-21 20:00] VITALS: BP 156/66
[2019-08-22 00:56] VITALS: BP 174/71
[2019-08-22 04:19] VITALS: BP 168/68; BP 181/61
--- NOTE | 2019-08-22 05:20 | NUR ---
ASSUMED CARE OF PT AFTER REPORT AT 1930. PT A&OX4. VSS. PHYSICAL ASSESSMENT COMPLETED AND CHARTED. PT ON RA. PT ON MEDSURG STATUS. PT UPADLIB. PT COMPLAINED OF BILATERAL LEG PAIN-MED GIVEN PER SEP. PT ABLE TO SLEEP WELL. CALL LIGHT WITHIN REACH.
[2019-08-22 08:00] VITALS: BP 154/60
[2019-08-22 08:40] LABS: ABSOLUTE BASOPHILS 0.1 thou/uL (0.0-0.2); ABSOLUTE EOSINOPHILS 0.1 thou/uL (0.0-0.7); ABSOLUTE LYMPHOCYTES 0.8 thou/uL (0.8-5.3); ABSOLUTE MONOCYTES 0.9 thou/uL (0.0-1.2); ABSOLUTE NEUTROPHILS 6.7 thou/uL (1.6-8.1); BASOPHILS 0.7 %; EOSINOPHILS 1.6 %; HEMATOCRIT 23.2 % (42.0-52.0); LYMPHOCYTES 9.2 %; MCH 32.9 pg (26.0-34.0); MCHC 34.3 g/dL (28.0-37.0); MCV 96.2 fL (80.0-100.0); MONOCYTES 10.1 %; MPV 8.3 fl. (7.2-11.1); NUCLEATED RBCS 0 /100WBC; PLATELET COUNT* 149 thou/uL (150-400); POLYS 78.4 %; RBC 2.41 mil/uL (4.50-6.00); RDW-CV 15.3 % (10.5-14.5); WBC 8.6 thou/uL (4.0-11.0)
[2019-08-22 08:42] LABS: CALCIUM 7.3 mg/dL (8.5-10.1); POTASSIUM 4.4 mmol/L (3.5-5.1)
[2019-08-22 08:44] LABS: CREATININE 4.1 mg/dL (0.6-1.3)
--- NOTE | 2019-08-22 10:22 | NUR ---
CM spoke with Pt, plan is to return to his friend's home at [place], pay medical transport at a rate of $7/way to dialysis, and plans to move to [place] in September to be closer to his son. CM confirmed with son. Son plans to bring in [facility] paperwork so that he will be able to assist Pt with transportation. Continue to await dialysis chair time.
[2019-08-22 11:02] VITALS: BP 131/56
--- NOTE | 2019-08-22 13:38 | NUR ---
ASSUMED PT CARE AT 0800, AOX4, UP AD ANSON, O2 SAT 90'S RA. PT MED SURG. PT COMPLAINS OF BILATERAL LEG PAIN. EDEMA NOTED ON JOANNE LOWER EXT. PT GOAL TO SET UP HD UPON D/C. PT HAS TEMPORARY DIALYSIS PORT R CHEST INTACT. L LIMB ALERT, HAS L AV FISTULA. PT ON DIALYSIS. PT ON FLUID RESTRICTION, I&O MONITOR. VSS, AM ASSESSMENT CHARTED, MEDS GIVEN PER MAR. CALL LIGHT WITHIN REACH, HOURLY ROUNDING, WILL CONTINUE TO MONITOR.
[2019-08-22 19:30] VITALS: BP 158/69
--- NOTE | 2019-08-23 05:49 | NUR ---
PT ALERT AND ORIENTED. VSS ON RA. HR AARON WHICH SEEMS NORMAL FOR PT. MEDS GIVEN PER EMAR. PT UP AD ANSON. FLUID RESTRICTION. PT HAD A TOTAL 800ML PRIOR TO MIDNIGHT. PT HAD 200ML SO FAR TODAY. PT CONCERNED ABOUT TRANSPORTATION ARRANGEMENTS TO DIALYSIS AFTER DC. WILL INFORM DAYSHIFT NURSE TO HAVE CM SPEAK WITH PT. CALL LIGHT WITHIN REACH. HOURLY ROUNDINGS MADE. WILL CONTINUE TO MONITOR.
[2019-08-23 07:13] VITALS: BP 169/75
--- NOTE | 2019-08-23 08:45 | NUR ---
CM spoke with liaison from [employer], they have initiated [facility], liaison said it could take up to 48 hours, once received, adicate timeadssenius will fax Pt's chair time. FMLA paperwork completed for son so that he can provide transportation to and from dialysis.
[2019-08-23] MEDS ORDERED: GABAPENTIN 100100 MG PO ×2 (11:14)
[2019-08-23] MEDS ORDERED: CATAPRES0.1 MG PO ×2 (11:14)
[2019-08-23] MEDS ORDERED: CARDURA1 MG PO ×2 (11:14)
--- NOTE | 2019-08-23 15:08 | PATH ---
[address] [address] PATHOLOGY RPT PROCEDURE Name: DIOGENES HAMEED Room: [address] IN M.R.#: [id number] Admission: 08/10/19 Date of : 47 Discharge: Report #: [id number] Path Case #: [id number] LCA Accession Number: [id number] . 01 Material submitted: . artery - LEFT BRACHIAL ARTERY PLAQUE. Modifiers: left . 01 Clinical history: . End-stage renal disease, occluded brachial artery . 02 Diagnosis: Left brachial artery plaque: - Benign fibromuscular tissue and fibrointimal atherosclerotic plaque with calcification. . (EMMANUEL:neisha; 08/23/2019) QMS 08/23/2019 1055 Local . 02 Electronically signed: . Eleno Friedman MD, Pathologist NPI- [id number] . 01 Gross description: . The specimen is received in formalin, labeled "Diogenes Hameed, Bar brachial artery plaque" and consists of 3 rubbery segments of pink-bazzi tissue measuring between 0.7 x 0.5 x 0.1 cm and 1.8 x 0.5 x 0.2 cm which are entirely submitted in A1. (SDY; 08/22/2019) SYU/SYU 08/22/2019 1129 Local . 02 Pathologist provided ICD-10: I70.8 . 02 CPT . [id number] Specimen Comment: A courtesy copy of this report has been sent to [phone] Specimen Comment: [phone] Specimen Comment: Report sent to / DR MALDONADO Performed at: [address], [place] [id number] MD Rich James MD Phone: [phone] Performed at: 02 [facility] [address], [place], [place] [id number] MD Eleno Friedman MD Phone: [phone]
[2019-08-23 16:00] VITALS: BP 167/65
--- NOTE | 2019-08-23 18:24 | NUR ---
ASSESSMENT COMPLETE. PT ALERT AND ORIENTED X4. DC PLANNINING CONTINUED WITH CM. PRN PAIN MEDICATION GIVEN ONCE FOR BILATERAL FOOT PAIN. PT ENCOURAGED TO ELEVATE FEET. PT TOLERATING MEALS, DENIES N/V. PT HAS NO OTHER CONCERNS. SEE ASSESSMENT AND VITALS FOR OTHER DETAILS. CALL LIGHT WITHIN REACH, WILL CONTINUE PLAN OF CARE
[2019-08-23 19:40] VITALS: BP 169/69
--- NOTE | 2019-08-24 05:25 | NUR ---
PT ALERT AND ORIENTED. AD ANSON. VSS ON RA. MEDS GIVEN PER EMAR. PAIN MEDS GIVEN THIS SHIFT. FLUID RESTRICTION. ANTICIPATED DC TODAY. CALL LIGHT WITHIN REACH. HOURLY ROUNDINGS MADE. WILL CONTINUE TO MONITOR.
[2019-08-24 05:43] VITALS: BP 174/78
[2019-08-24 12:00] VITALS: BP 169/80
--- NOTE | 2019-08-24 13:51 | EKG ---
[place] [address] ELECTROCARDIOGRAM REPORT Name: WAGNER HAMEED Room: [address] ADM IN .R.#: [id number] Admission: 08/10/19 Attend Phys: Alberto Amos Discharge: Date of : 47 Report #: [id number] THIS REPORT FOR: //name// [facility] ED Test Date: 2019-08-10 Test Time: 08:56:51 Pat Name: WAGNER HAMEED Department: Room: [facility] Gender: M Inlayer: : 1945 Requested By: Randy Ferreira Order Number: [id number] MD: Chadd Hutchison Measurements Intervals [place] Rate: 63 P: MT: QRS: 30 QRSD: 94 T: 129 QT: 419 QTc: 429 Interpretive Statements Atrial fibrillation Abnormal T, consider ischemia, lateral leads No previous ECG available for comparison Electronically Signed On 08-10-2019 14:31:30 TELERADIOLOGIST by Chadd Hutchison [email or web address] <ELECTRONICALLY SIGNED> By: Chadd Hutchison MD, [facility] 08/10/19 1431 D: 01855 5 Chadd Hutchison MD, FACC /EPI
--- NOTE | 2019-08-24 14:22 | NUR ---
Betty received approval from [facility] for OP dialysis and Chair time Trini Dowell Sat at 12 pm. Pt to dc home with friend today. Nurse aware and providing dialysis letter/instructions to pt.
[2019-08-24] MEDS ORDERED: NORCO 5-325 TA1 EAC1 PO (14:37)
[2019-08-24 16:00] VITALS: BP 118/83
--- NOTE | 2019-08-24 18:15 | NUR ---
PATIENT TO DISCHARGE THIS EVENING. PATIENT REFUSING TO GO TO [facility] [place] STATING HE DOESNT WANT TO GO ALL THE WAY OUT THERE. PATIENT INFORMED THAT HIS MEDICATION WAS SENT OUT THAT WAY TO HIS PHARMACY. PATIENT STATED HE WOULD GET HIS MEDICATIONS IN THE NEW FEW DAYS. INFORMED PATIENT THAT HE NEEDED MEDICATIONS AND COULD NOT WAIT A FEW DAYS. PATIENT CONTINUES CALLING HIS FRIEND BUT NO ANSWER. PATIENT HAD DIALYSIS TODAY. SPOKE WITH CARDIOLOGY AND OK FOR PATIENT TO CONTINUE CLONIDINE (REQUEST TO CALL THEM WAS MADE BY NEPHROLOGY) WILL CONTINUE TO MONITOR.
[2019-08-24 21:00] VITALS: BP 182/77
[2019-08-24 23:46] VITALS: BP 170/69
[2019-08-25 04:00] VITALS: BP 177/60
--- NOTE | 2019-08-25 06:05 | NUR ---
PATIENT SLEPT PART OF THE NIGHT. IV REMAINS SALINE LOCKED. PATIENT WAS GIVEN NAUSEA MEDICINE TWICE AND TYLENOL ONCE FOR PAIN. GARCIA WAS DISCONTINUED AT ABOUT 0300. PATIENT HAS TRIED TO PEE ONCE SO FAR ONLY GONE A DRIBBLE. PATIENT REMAINS ON OXYGEN 2-3L SATTING MID 90'S . PATIENT WAS FOUND A COUPLE TIMES WITH NO OXYGEN ON AND WAS SATTING IN THE 70'S. PATIENT IS POSSIBLY GOING HOME TODAY OR TOMORROW. WILL CONTINUE TO MONITOR.
[2019-08-25 08:00] VITALS: BP 152/78
[2019-08-25 09:21] VITALS: BP 152/78
--- NOTE | 2019-08-25 11:19 | NUR ---
PT A&OX4 VSS. PT IS NEW DIALYSIS PT, AV FISTULA TO LUE NOT CLEARED FOR USE AT THIS TIME. TEMPORARY CATHETER TO R CHEST. DRESSING C/D/I. PT NOTED TO BE OFF UNIT AT 1044, EVS OBSERVED PT TO ENTER ELEVATOR. PT RETURNED TO OUR UNIT STATING HE HAD LEFT THE FLOOR TO VISIT A RELATIVE ON 2ND FLOOR. PT RE-EDUCATED REGARDING THE NEED TO INFORM STAFF BEFORE LEAVING UNIT. CASE MANAGEMENT WORKING WITH THIS PT TO SECURE TRANSPORTATION FOR DIALYSIS APPT TODAY. NO IV ACCESS NOTED TO DEVYN MOSCOSO AND COTTON IN PLACE. THIS NURSE DISCUSSED DC INFORMATION AND F/U INSTRUCTIONS WITH PT. PT STATES HE MOST LIKELY WILL NOT COMPLY IT IS "TOO MUCH OF A HASSLE". CASE MANAGEMENT IN ROOM TO ASSIST WITH TAXI VOUCHERS AND DIALYSIS INFORMATION FOR OUTPATIENT TREATMENT. PT ASSISTED TO GETHER PERSONAL BELONGINGS AND TRANSPORTED TO EXIT IN . PT ESCORTED BY NURSING STAFF.
--- NOTE | 2019-08-25 11:42 | NUR ---
DIRECTOR OF EXTENSION WORK TALKED WITH THE PATIENT ABOUT GOING TO [facility] AT [address] [place] [address]; [phone] TODAY AT HIS THURSDAY APPOINTMENT AT 12:00. HE IS SCHEDULED EVERY THURSDAY, THURSDAY AND THURSDAY AT 12:00 PM. PROVIDED CAB VOUCHERS TO DIALYSIS AND A VOUCHER TO HOME IN [place], [place] AFTER DIALYSIS. CONTACTED FAD[facility] (SON) [phone] AND LEFT MESSAGE FOR HIM TO CALL ME BACK REGARDING HIS FATHER'S PLAN OF CARE AFTER DISCHARGE. FAXED DISCHARGE SUMMARY AND DIALYSIS DATA FROM YESTERDAY TO [facility] [phone]. TAMRA AT [facility] TO FOLLOW UP WITH ALANNA CARRILLOG POSSIBLE FUTURE TRANSPORTION ARRANGEMENTS TO AND FROM DIALYSIS.
--- NOTE | 2019-08-31 17:11 | OP ---
[facility] [address] [place] [address] OPERATIVE REPORT Name: WAGNER HAMEED Room: [address] IN M.R.#: [id number] Admission: 08/10/19 Attend Phys: Alberto Amos Discharge: 08/25/19 Date of : 47 Report #: [id number] THIS REPORT FOR: //name// cc: [facility] physician unknown [facility] physician unknown ~ THIS REPORT FOR: //name// CC: [facility] unknown [facility] Ranjit Giordano DATE OF SERVICE: 08/19/2019 PREOPERATIVE DIAGNOSIS: End-stage renal disease. POSTOPERATIVE DIAGNOSES: 1. Occluded brachial artery at the antecubital fossa. 2. End-stage renal disease. PROCEDURES: 1. Left brachial thrombectomy. 2. Left brachial artery endarterectomy. 3. Left AV fistula formation between the brachial artery and cephalic vein. SURGEON: Lance Adames MD. COUNCILOR: Simeon Monroe. COMPLICATIONS: None. ESTIMATED BLOOD LOSS: 10 mL. SPECIMEN: Includes chronic thrombus and plaque from brachial artery. ANESTHESIA: Local sedation. INDICATIONS FOR PROCEDURE: The patient is a very pleasant 73-year-old white male with end-stage renal disease. I have been asked to place an AV fistula. Informed consent was obtained from the patient with risks including but not limited to bleeding, infection, need for further surgery, pain, , heart attack, stroke, steal syndrome. The patient understood these risks and was agreeable to proceed. DESCRIPTION OF PROCEDURE: The patient was taken to the OR and placed in supine position. After adequate sedation was initiated, left arm was prepped and draped in usual sterile fashion. Timeout was performed. I created a transverse [facility] [address] [place] [address] OPERATIVE REPORT Name: WAGNER HAMEED Room: [address] IN M.R.#: [id number] Admission: 08/10/19 Attend Phys: Alberto Amos Discharge: 08/25/19 Date of : 47 Report #: [id number] incision just distal to the antecubital fossa of the left upper extremity. Sharp and blunt dissections were carried down to the cephalic vein. It was noted to be of adequate caliber for fistula formation. I ligated a large side branch. I was able to pass a 3.5 mm dilator up the cephalic vein after I transected it. I tied off the distal end using a 2-0 silk suture ligature. I spatulated the free end of the cephalic vein and transposed it over towards the brachial artery. I then dissected out the brachial artery and controlled proximally and distally. I noted that it was hard and rubbery and had minimal pulse. I created a longitudinal arteriotomy in the brachial artery after heparinizing the patient. Immediately, I identified chronic thrombus/embolus within the brachial artery. This appeared again to be chronic and I suspect he had embolus some time ago, but did not seek medical attention. There was not adequate flow for fistula formation; otherwise, a trickle-flow in this area. I performed endarterectomy of this area using a [place] elevator and a pair of pickups. I performed proximal and distal thrombectomy using a Kellie clamp. I got good inflow and good backbleeding. I removed a large amount of chronic thrombus and plaque. I then transposed the vein over on to the artery and created end-to-side anastomosis using a running 6-0 Prolene suture. At the completion of anastomosis, there was adequate hemostasis and excellent blood flow into the cephalic vein. I irrigated the wound bed with antibiotic saline. The patient had palpable radial and ulnar pulses. I interrogated them with Doppler and they were multiphasic with compression of the fistula and biphasic with release of the fistula. Fistula had excellent thrill within it. I closed the wound in multiple layers after using some Aaron and electrocautery to control bleeding. I closed the wound in multiple layers using 3-0 Vicryl and 4-0 Monocryl for the skin. Incision was dressed with Dermabond. The patient was taken alert and awake to recovery room in good condition with palpable pulse at the wrist and a palpable thrill within the fistula. <ELECTRONICALLY SIGNED> By: Lance Adames MD 08/31/19 1711 1358 1510Lance Adames MD /nt
== END 2019-08-25 11:25 | disposition home or self-care (01) | DRG 264 ==
LOC: M.ERS 08:44 → M.TBA-ER 10:05 → M.2W 10:05 → M.3W 08-22 19:23
PROVIDERS: Emergency Medicine Emergency Medical Services; Family Medicine; Internal Medicine; Internal Medicine Cardiovascular Disease; Internal Medicine Nephrology; Radiology Diagnostic Radiology; ADMIT Internal Medicine
PROC: B518ZZA Fluoroscopy of Superior Vena Cava, Guidance (ICD-10-PCS; principal; 2019-08-16)
PROC: 0JH63XZ Insertion of Tunneled Vascular Access Device into Chest Subcutaneous Tissue and Fascia, Percutaneous Approach (ICD-10-PCS; principal; 2019-08-16)
PROC: 0TB13ZX Excision of Left Kidney, Percutaneous Approach, Diagnostic (ICD-10-PCS; principal; 2019-08-16)
PROC: 03180ZD Bypass Left Brachial Artery to Upper Arm Vein, Open Approach (ICD-10-PCS; principal; 2019-08-16)
PROC: B548ZZA Ultrasonography of Superior Vena Cava, Guidance (ICD-10-PCS; principal; 2019-08-16)
PROC: 5A1D70Z Performance of Urinary Filtration, Intermittent, Less than 6 Hours Per Day (ICD-10-PCS; 2019-08-16)
PROC: 02H633Z Insertion of Infusion Device into Right Atrium, Percutaneous Approach (ICD-10-PCS; 2019-08-16)
PROC: 5A1D70Z Performance of Urinary Filtration, Intermittent, Less than 6 Hours Per Day (ICD-10-PCS; 2019-08-17)
PROC: 5A1D70Z Performance of Urinary Filtration, Intermittent, Less than 6 Hours Per Day (ICD-10-PCS; 2019-08-18)
PROC: 5A1D70Z Performance of Urinary Filtration, Intermittent, Less than 6 Hours Per Day (ICD-10-PCS; 2019-08-20)
PROC: 5A1D70Z Performance of Urinary Filtration, Intermittent, Less than 6 Hours Per Day (ICD-10-PCS; 2019-08-22)
PROC: 5A1D70Z Performance of Urinary Filtration, Intermittent, Less than 6 Hours Per Day (ICD-10-PCS; 2019-08-24)
DX: I13.2 Hypertensive heart and chronic kidney disease with heart failure and with stage 5 chronic kidney disease, or end stage renal disease (principal); I50.33 Acute on chronic diastolic (congestive) heart failure; N17.0 Acute kidney failure with tubular necrosis; N18.6 End stage renal disease; E44.1 Mild protein-calorie malnutrition; I74.2 Embolism and thrombosis of arteries of the upper extremities; I48.91 Unspecified atrial fibrillation; I49.5 Sick sinus syndrome; I27.20 Pulmonary hypertension, unspecified; D64.9 Anemia, unspecified; I08.0 Rheumatic disorders of both mitral and aortic valves; I87.8 Other specified disorders of veins; Z60.2 Problems related to living alone; F41.9 Anxiety disorder, unspecified; N26.9 Renal sclerosis, unspecified; M25.821 Other specified joint disorders, right elbow; E88.09 Other disorders of plasma-protein metabolism, not elsewhere classified; M10.9 Gout, unspecified; Z79.899 Other long term (current) drug therapy; Z88.8 Allergy status to other drugs, medicaments and biological substances; Z72.89 Other problems related to lifestyle; Z79.01 Long term (current) use of anticoagulants; Z68.26 Body mass index [BMI] 26.0-26.9, adult; Z99.2 Dependence on renal dialysis; Z82.49 Family history of ischemic heart disease and other diseases of the circulatory system

== ENCOUNTER 2019-08-25 16:48 | Inpatient (IN) | payer OTHER ==
[~2019-08-25] VITALS: Ht 182.9 cm; Wt 85.9 kg
[~2019-08-25 16:48] MED LIST changes: +CARDURA1 MG PO; +CATAPRES0.1 MG PO; +GABAPENTIN 100100 MG PO; +NORCO 5-325 TA1 EAC1 PO
[2019-08-25 16:49] VITALS: BP 173/82
[2019-08-25 17:25] LABS: ABSOLUTE BASOPHILS 0.1 thou/uL (0.0-0.2); ABSOLUTE EOSINOPHILS 0.2 thou/uL (0.0-0.7); ABSOLUTE LYMPHOCYTES 1.1 thou/uL (0.8-5.3); ABSOLUTE MONOCYTES 0.8 thou/uL (0.0-1.2); ABSOLUTE NEUTROPHILS 6.7 thou/uL (1.6-8.1); EOSINOPHILS 2.6 %; HEMATOCRIT 28.4 % (42.0-52.0); HEMOGLOBIN 9.8 gm/dL (14.0-18.0); LYMPHOCYTES 12.3 %; MCH 33.2 pg (26.0-34.0); MCHC 34.6 g/dL (28.0-37.0); MCV 95.8 fL (80.0-100.0); MONOCYTES 8.6 %; MPV 7.9 fl. (7.2-11.1); NUCLEATED RBCS 0 /100WBC; PLATELET COUNT* 168 thou/uL (150-400); POLYS 75.5 %; RBC 2.97 mil/uL (4.50-6.00); RDW-CV 15.9 % (10.5-14.5); WBC 8.8 thou/uL (4.0-11.0)
[2019-08-25 17:34] LABS: CALCIUM 7.6 mg/dL (8.5-10.1); CREATININE 1.5 mg/dL (0.6-1.3); POTASSIUM 3.8 mmol/L (3.5-5.1); PROTIME 10.7 Seconds (9.20-11.50)
[2019-08-25 17:45] LABS: TOTAL BILIRUBIN 0.4 mg/dL (<0.1-1.0); TOTAL PROTEIN 6.3 g/dL (6.4-8.2)
[2019-08-25 18:33] LABS: ALCOHOL < 10 mg/dL (<10); SALICYLATE < 2.8 mg/dL (2.8-20.0)
[2019-08-25 18:37] LABS: ACETAMINOPHEN < 2 ug/mL (10-30)
[2019-08-25 20:20] LABS: URINE BILIRUBIN NEGATIVE (Negative); URINE BLOOD TRACE (Negative); URINE CLARITY CLEAR; URINE COLOR YELLOW; URINE GLUCOSE-RANDOM NEGATIVE (Negative); URINE KETONES NEGATIVE (Negative); URINE LEUKOCYTES-REFLEX NEGATIVE (Negative); URINE NITRITE-REFLEX NEGATIVE (Negative); URINE PROTEIN 3+ (Negative); URINE SPECIFIC GRAVITY 1.015 (1.005-1.030); URINE UROBILINOGEN 0.2 E.U./dl (0.2-1.0)
[2019-08-25 20:27] LABS: AMP/METHAMP Negative (Negative); BARBITURATES Negative (Negative); BENZODIAZEPINES Negative (Negative); COCAINE Negative (Negative); METHADONE Negative (Negative); OPIATES Negative (Negative); PCP Negative (Negative); THC Negative (Negative)
[2019-08-25 20:30] LABS: BACTERIA-REFLEX 1-9 Few /HPF (None Seen); HYALINE CASTS 0-3 Few /LPF (None Seen); MUCUS None Seen strn/LPF (None Seen); SQUAMOUS 4-10 Moderate /LPF (0-3)
[2019-08-25 20:31] LABS: CRYSTALS None Seen /LPF (None Seen); URINE RBC 0-2 Rare /HPF (0-2); URINE WBC-REFLEX 0-5 Rare /HPF (0-5)
[2019-08-25 21:12] VITALS: BP 182/85
[2019-08-25 21:45] VITALS: BP 152/89
--- NOTE | 2019-08-26 05:36 | NUR ---
PATIENT ARRIVED ON FLOOR FROM THE ER ABOUT 5. PATIENT WAS DISCHARGED ABOUT EARLIER DURING THE DAY AND WENT TO DIALYSIS. PATIENT WAS SENT TO THE ER AFTER DIALYSIS PATIENT BECAME CONFUSED. PATIENT HAS BEEN ALERT AND ORIENTED FOR ME WITH NO CONFUSION. IV REMAINS SALINE LOCKED. PATIENT HAD NO COMPLAINTS OF PAIN. WILL CONTINUE TO MONITOR.
[2019-08-26 08:17] VITALS: BP 169/76
--- NOTE | 2019-08-26 09:43 | EKG ---
[place] [address] ELECTROCARDIOGRAM REPORT Name: WAGNER HAMEED Room: [address] ADM IN M.R.#: [id number] Admission: 08/25/19 Attend Phys: Ranjit Giordano Discharge: Date of : 47 Date of Service: 08/25/19 1723 Report #: [id number] THIS REPORT FOR: //name// [facility] ED Test Date: 2019-08-25 Test Time: 17:23:07 Pat Name: WAGNER OSHEAROCKY Department: Room: [facility] Gender: M State Inspector: [facility] : 1945 Requested By: Lance Sandoval Order Number: [id number] MD: Geremias Fitch Measurements Intervals [place] Rate: 50 P: NV: QRS: 11 QRSD: 101 T: 130 QT: 482 QTc: 440 Interpretive Statements Atrial fibrillation Probable LVH with secondary repol abnrm Compared to ECG 08/10/2019 08:56:51 T-wave abnormality no longer present Possible ischemia no longer present Electronically Signed On 08-26-2019 9:42:40 RADIO JOURNALIST by Geremias Fitch [email or web address] <ELECTRONICALLY SIGNED> By: Geremias Fitch MD, [facility] 08/26/19 0942 1723 1723 Geremias Fitch MD, FAC /EPI
[2019-08-26 11:29] VITALS: BP 169/76
[2019-08-26 11:31] VITALS: BP 169/76
--- NOTE | 2019-08-26 11:44 | NUR ---
PT A&OX4 VSS. PT WAS DC'D FROM THE UNIT YESTERDAY. PT RETURNED TO THIS ER FOLLOWING DIALYSIS. PT IV TO CHAPIN DC'D PRIOR TO LEAVING UNIT, NO REDNESS/SWELLING NOTED AT SITE. PT LEAVES UNIT STATING HE IS VISITING HIS SISTER DOWNSTAIRS. PT IS CLEARED FOR DC BY NEPHROLOGY THIS AM. NO NEURO CONSULT PER DR HAWKINS. PT PROVIDED DC INSTRUCTIONS AND F/U INFORMATION. PT IS PROVIDED TAXI VOUCHER BY CASE MANAGEMENT TO ADDRESS PT HAS PROVIDED. PT LEAVES UNIT WITH ALL PERSONAL BELONGINGS.
--- NOTE | 2019-08-26 11:59 | NUR ---
Reassessed pt situation and discussed dc planning again with Dr Stover, pt nurse, and pt. Plan for pt to dc home to pt friend [place]; pt spoke with Santosh and no mention now of home conditions. SW called Santosh and left a message about dc [phone]. Pt needed ride to [place]: [address] [place], [place]. Cab voucher necessary. Cardio follow up in pt dc information as well as nephrology and [facility].
--- NOTE | 2019-08-31 10:24 | CON ---
[address] [address] CONSULTATION Name: DAYOEDDIELEO PaigeTamir PANTOJA Room: [address] IN M.R.#: [id number] Admission: 08/25/19 Attend Phys: Alberto Amos Discharge: 08/26/19 Date of : 47 Report #: [id number] THIS REPORT FOR: //name// cc: [facility] - [facility] physician unknown [facility] physician unknown ~ THIS REPORT FOR: //name// CC: [facility] unknown Ranjit Giordano DATE OF SERVICE: 08/26/2019 NEPHROLOGY CONSULTATION REFERRING PHYSICIAN: Regine Stover MD REASON FOR NEPHROLOGY CONSULTATION: ESRD, on maintenance hemodialysis. REASON FOR ADMISSION: Confusion post-dialysis. HISTORY OF PRESENT ILLNESS: This is a 73-year-old male with past medical history of hypertensive nephrosclerosis, recently diagnosed ESRD and discharged from the hospital just yesterday, supposed to be on dialysis on Thursday, and Thursday schedule, went for his dialysis yesterday post-discharge, felt dizzy and a little confused. After his dialysis he came to the hospital. His mental status seemed to me as it was before this morning. His labs are stable. He has edema, but that is not unusual for him, and we have been trying to challenge his dry weight. ALLERGIES: INDOMETHACIN. REVIEW OF SYSTEMS: As mentioned in history of present illness, otherwise 10-point review of systems are negative. PAST MEDICAL AND SURGICAL HISTORY: Includes hypertension, hypertensive nephrosclerosis. He is already on hemodialysis. HOME MEDICATIONS: Clonidine, doxazosin, gabapentin, allopurinol, mupirocin, hydrocodone, acetaminophen and in fact I started him on hydralazine yesterday as well. FAMILY HISTORY: Heart disease and hypertension. SOCIAL HISTORY: Home situation is not entirely clear. No smoking, no alcohol, no recreational drug use [place] [address] CONSULTATION Name: WAGNER HAMEED Room: [address]#: [id number] Admission: 08/25/19 Attend Phys: Alberto Amos Discharge: 08/26/19 Date of : 47 Report #: [id number] PHYSICAL EXAMINATION: VITAL SIGNS: Blood pressure is 169/76, pulse rate 67, temperature 36.6, respiratory rate is 17, and pulse ox on room air is 97%. GENERAL: He is awake, alert, oriented x 2 and he is saying that the year is 1999, but we are able to orient him back. HEAD: Atraumatic, normocephalic. EYES, EARS, NOSE, AND THROAT: Normal ears and nose. Mucous membranes are moist. NECK: No JVD. CHEST: Bilaterally clear to auscultation anteriorly. No crackles or wheezing. CARDIOVASCULAR: S1, S2 normal. No murmurs. ABDOMEN: Soft, nondistended, nontender. Bowel sounds are present. LOWER EXTREMITIES: 3+ lower extremity edema. NEUROLOGICAL FUNCTION: Gross neurological function is intact. PSYCHIATRIC: Appropriate affect seem to be normal. LABORATORY DATA: Hemoglobin 9.8, WBC is 8.8, potassium is 3.0. Other labs are reviewed. IMAGING: Head CT and chest x-ray were reviewed. ASSESSMENT: 1. End-stage renal disease, on hemodialysis every Thursday, and Thursday. Reason for end-stage renal disease, hypertensive nephropathy. 2. Uncontrolled hypertension. 3. Bradycardia. 4. Fluid overload. 5. Anemia of chronic kidney disease. PLAN: There is no acute need for dialysis today because he dialyzed yesterday. He is okay to be discharged today from renal standpoint. If he for some reason stays overnight, we will dialyze him tomorrow. Because of his ongoing bradycardia, I have decreased his clonidine to 0.1 mg b.i.d. yesterday and added hydralazine and I am going to do the same change today. Thank you for this consultation. Please call with any questions. We will follow with you for dialysis needs. <ELECTRONICALLY SIGNED> By: Elisabet Johnson MD 08/31/19 1024 0916 1156Ajames Johnson MD /nt
== END 2019-08-26 12:01 | disposition home or self-care (01) | DRG 291 ==
LOC: M.ERS 16:48 → M.3W 18:26 → M.TBA-ER 18:26 → M.3W 21:15
PROVIDERS: Emergency Medicine; ADMIT Internal Medicine
DX: I13.2 Hypertensive heart and chronic kidney disease with heart failure and with stage 5 chronic kidney disease, or end stage renal disease (principal); G93.41 Metabolic encephalopathy; N18.6 End stage renal disease; I50.33 Acute on chronic diastolic (congestive) heart failure; E44.1 Mild protein-calorie malnutrition; M10.9 Gout, unspecified; I27.20 Pulmonary hypertension, unspecified; D63.1 Anemia in chronic kidney disease; F41.9 Anxiety disorder, unspecified; I49.5 Sick sinus syndrome; I35.0 Nonrheumatic aortic (valve) stenosis; I48.91 Unspecified atrial fibrillation; Z87.01 Personal history of pneumonia (recurrent); Z99.2 Dependence on renal dialysis; Z88.8 Allergy status to other drugs, medicaments and biological substances; Z82.49 Family history of ischemic heart disease and other diseases of the circulatory system; Z72.89 Other problems related to lifestyle; Z79.899 Other long term (current) drug therapy; Z68.25 Body mass index [BMI] 25.0-25.9, adult

== ENCOUNTER 2019-10-26 15:10 | Observation (INO) | payer OTHER ==
[~2019-10-26] VITALS: Ht 180.3 cm; Wt 81.2 kg
[2019-10-26 15:18] VITALS: BP 185/87
[2019-10-26 15:38] LABS: ABSOLUTE BASOPHILS 0.1 thou/uL (0.0-0.2); ABSOLUTE EOSINOPHILS 0.2 thou/uL (0.0-0.7); ABSOLUTE LYMPHOCYTES 0.4 thou/uL (0.8-5.3); ABSOLUTE MONOCYTES 0.5 thou/uL (0.0-1.2); ABSOLUTE NEUTROPHILS 4.2 thou/uL (1.6-8.1); BASOPHILS 1.2 %; EOSINOPHILS 4.1 %; HEMATOCRIT 28.5 % (42.0-52.0); HEMOGLOBIN 9.8 gm/dL (14.0-18.0); LYMPHOCYTES 7.1 %; MCH 31.3 pg (26.0-34.0); MCHC 34.5 g/dL (28.0-37.0); MCV 90.6 fL (80.0-100.0); MONOCYTES 10.1 %; MPV 7.2 fl. (7.2-11.1); NUCLEATED RBCS 0 /100WBC; PLATELET COUNT* 236 thou/uL (150-400); POLYS 77.5 %; RBC 3.15 mil/uL (4.50-6.00); RDW-CV 14.7 % (10.5-14.5); WBC 5.5 thou/uL (4.0-11.0)
[2019-10-26 15:44] LABS: CALCIUM 8.4 mg/dL (8.5-10.1); CREATININE 4.1 mg/dL (0.6-1.3); POTASSIUM 5.1 mmol/L (3.5-5.1)
[2019-10-26 15:45] LABS: INR 1.1; PROTIME 11.4 Seconds (9.20-11.50)
[2019-10-26 15:54] LABS: ALBUMIN 3.3 g/dL (3.4-5.0); TOTAL BILIRUBIN 0.4 mg/dL (<0.1-1.0); TOTAL PROTEIN 7.2 g/dL (6.4-8.2)
[2019-10-26 20:10] VITALS: BP 177/70
[2019-10-26 20:12] VITALS: BP 171/74
[2019-10-26 21:10] VITALS: BP 177/70
[2019-10-27 00:14] VITALS: BP 148/70
[2019-10-27 04:00] VITALS: BP 160/67
[2019-10-27 08:00] VITALS: BP 154/70
--- NOTE | 2019-10-27 09:20 | EKG ---
[place] [address] ELECTROCARDIOGRAM REPORT Name: WAGNER HAMEED Room: [address] M.R.#: [id number] Admission: 10/26/19 Attend Phys: Elbert Lamar, Discharge: Date of : 47 Date of Service: 10/26/19 1543 Report #: [id number] THIS REPORT FOR: //name// [facility] ED Test Date: 2019-10-26 Test Time: 15:43:56 Pat Name: WAGNER HAMEED Department: Room: [facility] Gender: M German Teacher: : 1945 Requested By: Reilly Chavira Order Number: [id number] MD: Geremias iFtch Measurements Intervals [place] Rate: 67 P: [place]: QRS: 49 QRSD: 90 T: 119 QT: 446 QTc: 471 Interpretive Statements Atrial fibrillation Abnormal T, consider ischemia, lateral leads Compared to ECG 08/25/2019 17:23:07 T-wave abnormality now present Possible ischemia now present Electronically Signed On 10-27-2019 9:19:01 CDT by Geremias Fitch [email or web address] <ELECTRONICALLY SIGNED> By: Geremias Fitch MD, [facility] 10/27/19 0919 1543 1543 Geremias Fitch MD, [facility] /EPI
[2019-10-27 13:30] VITALS: BP 154/70
--- NOTE | 2019-10-28 10:54 | CON ---
[address] [address] CONSULTATION Name: WAGNER HAMEED SCARLETT Room: [address] Douglas Gorman#: [id number] Admission: 10/26/19 Attend Phys: Elbert Lamar MD Discharge: 10/27/19 Date of : 47 Report #: [id number] THIS REPORT FOR: //name// cc: [facility] - [facility] physician unknown [facility] physician unknown ~ THIS REPORT FOR: //name// CC: [facility] unknown Elbert Lamar DATE OF SERVICE: 10/27/2019 REQUESTING PHYSICIAN: Elbert Lamar MD. REASON FOR CONSULTATION: Assist in providing dialysis. HISTORY OF PRESENT ILLNESS: The patient is a 74-year-old gentleman with medical history significant for end-stage renal disease, who presented to the Emergency Room with complaints of shortness of breath. Shortness of breath started a couple days ago. The patient unfortunately missed several dialysis treatments on outpatient basis due to his weakness and inability to ambulate. So, he was admitted, he was fluid overloaded and very weak, uremic and on dialysis now. PAST MEDICAL HISTORY: 1. End-stage renal disease. 2. Anemia. 3. Chronic atrial fibrillation. 4. Failure to thrive. 5. Hypertension. FAMILY HISTORY: Noncontributory. SOCIAL HISTORY: No tobacco, no alcohol abuse. REVIEW OF SYSTEMS: Positive for the symptoms that I mentioned earlier. PHYSICAL EXAMINATION: GENERAL: Examined on dialysis. VITAL SIGNS: Blood pressure now 154/70, heart rate is 66, and afebrile. HEENT: Pupils are round. NECK: Supple. LUNGS: Crackles at bases. CARDIOVASCULAR: Irregular rate. ABDOMEN: Soft. ASSESSMENT: [facility] [address] [place] [address] CONSULTATION Name: WAGNER HAMEED Room: [address] Sherif#: [id number] Admission: 10/26/19 Attend Phys: Elbert Lamar MD Discharge: 10/27/19 Date of : 47 Report #: [id number] 1. End-stage renal disease, missed dialysis. 2. Fluid overload due to missing dialysis. 3. Failure to thrive. 4. Atrial fibrillation. 5. Hypertension. PLAN: Dialysis today. We will try to do dialysis tomorrow as well and Thursday as well. Overall, issue is with the social situation. He is too weak. He may need to be in a retirement. <ELECTRONICALLY SIGNED> By: Sulaiman Gu MD 10/28/19 1054 0948 1003Alizett Gu MD /nt
== END 2019-10-27 14:45 | disposition home or self-care (01) ==
LOC: M.ERS 15:10 → M.TBA-ER 17:01 → M.2W 17:01 → M.TBA-ER 17:01 → M.2W 20:04
PROVIDERS: Family Medicine; ADMIT Internal Medicine
DX: I12.0 Hypertensive chronic kidney disease with stage 5 chronic kidney disease or end stage renal disease (principal); N18.6 End stage renal disease; R62.7 Adult failure to thrive; I48.91 Unspecified atrial fibrillation; E87.70 Fluid overload, unspecified; M10.9 Gout, unspecified; E87.5 Hyperkalemia; I16.0 Hypertensive urgency; D68.69 Other thrombophilia; E44.1 Mild protein-calorie malnutrition; Z99.2 Dependence on renal dialysis

== ENCOUNTER → 2020-03-06 | Outpatient (CLI) | payer MEDICAID, MEDICARE | LOC: M.LAB 16:24 | PROVIDERS: ATTEND Internal Medicine Nephrology | DX: D75.82 Heparin induced thrombocytopenia (HIT) (principal) ==

== ENCOUNTER 2020-04-19 10:50 | Inpatient (IN) | payer OTHER ==
[~2020-04-19] VITALS: Ht 180.3 cm; Wt 97.5 kg
[2020-04-19 11:04] VITALS: BP 158/69
[2020-04-19 12:31] LABS: HEMATOCRIT 31.3 % (42.0-52.0); HEMOGLOBIN 10.9 gm/dL (14.0-18.0); MCH 33.5 pg (26.0-34.0); MCHC 34.9 g/dL (28.0-37.0); MCV 96.1 fL (80.0-100.0); MPV 8.3 fl. (7.2-11.1); NUCLEATED RBCS 0 /100WBC; PLATELET COUNT* 83 thou/uL (150-400); RBC 3.26 mil/uL (4.50-6.00); RDW-CV 15.5 % (10.5-14.5); WBC 6.8 thou/uL (4.0-11.0)
[2020-04-19 12:43] LABS: CREATININE 5.1 mg/dL (0.6-1.3); POTASSIUM 4.7 mmol/L (3.5-5.1)
[2020-04-19 12:47] LABS: ALBUMIN 3.5 g/dL (3.4-5.0); TOTAL BILIRUBIN 0.6 mg/dL (<0.1-1.0); TOTAL PROTEIN 6.7 g/dL (6.4-8.2)
[2020-04-19 12:58] LABS: ABSOLUTE BASOPHILS 0.1 thou/uL (0.0-0.2); ABSOLUTE EOSINOPHILS 0.1 thou/uL (0.0-0.7); ABSOLUTE LYMPHOCYTES 0.9 thou/uL (0.8-5.3); ABSOLUTE MONOCYTES 0.1 thou/uL (0.0-1.2); ABSOLUTE NEUTROPHILS 5.6 thou/uL (1.6-8.1); PLATELET ESTIMATE DECREASED
--- NOTE | 2020-04-19 16:23 | EKG ---
[place] [address] ELECTROCARDIOGRAM REPORT Name: WAGNER HAMEED Room: [place] [address] ADM IN .R.#: [id number] Admission: 04/19/20 Attend Phys: Tyrese Saleh, Discharge: Date of : 47 Date of Service: 04/19/20 1215 Report #: [id number] THIS REPORT FOR: //name// [facility] ED Test Date: 2020-04-19 Test Time: 12:15:48 Pat Name: WAGNER OSHEAEDDIERoyal Department: Room: [facility] Gender: M Coding Team Lead: PHILIP : 1945 Requested By: Jocelynn Kelly Order Number: [id number] MD: Chadd Hutchison Measurements Intervals [place] Rate: 54 P: [place]: QRS: 23 QRSD: 97 T: 119 QT: 459 QTc: 435 Interpretive Statements Atrial fibrillation RSR' in V1 or V2, probably normal variant Abnormal T, consider ischemia, lateral leads Compared to ECG 10/26/2019 15:43:56 RSR' in V1 or V2 now present T-wave abnormality still present Possible ischemia still present Electronically Signed On 04-19-2020 16:23:45 CDT by Chadd Hutchison [email or web address] <ELECTRONICALLY SIGNED> By: Chadd Hutchison MD, [facility] 04/19/20 1623 1215 Chadd Hutchison MD, [facility] /EPI
[2020-04-19 17:45] VITALS: BP 135/63
[2020-04-19 17:50] VITALS: BP 164/62
[2020-04-19 19:45] VITALS: BP 153/52
[2020-04-19] MEDS ORDERED: NORVASC 2.5 MG2.5 M1 PO (21:02)
[2020-04-19] MEDS ORDERED: ELIQUIS2.5 MG PO (21:02)
[2020-04-20] VITALS: BP 102/60
[2020-04-20 04:00] VITALS: BP 169/72
[2020-04-20 05:13] LABS: ABSOLUTE BASOPHILS 0.1 thou/uL (0.0-0.2); ABSOLUTE EOSINOPHILS 0.3 thou/uL (0.0-0.7); ABSOLUTE LYMPHOCYTES 0.5 thou/uL (0.8-5.3); ABSOLUTE MONOCYTES 0.5 thou/uL (0.0-1.2); ABSOLUTE NEUTROPHILS 4.5 thou/uL (1.6-8.1); BASOPHILS 1.1 %; HEMATOCRIT 31.3 % (42.0-52.0); LYMPHOCYTES 8.4 %; MCH 33.9 pg (26.0-34.0); MCHC 35.2 g/dL (28.0-37.0); MCV 96.5 fL (80.0-100.0); MONOCYTES 8.8 %; NUCLEATED RBCS 0 /100WBC; PLATELET COUNT* 84 thou/uL (150-400); POLYS 76.7 %; RBC 3.24 mil/uL (4.50-6.00); RDW-CV 15.4 % (10.5-14.5); WBC 5.9 thou/uL (4.0-11.0)
[2020-04-20 05:46] LABS: CALCIUM 8.2 mg/dL (8.5-10.1); CREATININE 5.8 mg/dL (0.6-1.3); POTASSIUM 4.7 mmol/L (3.5-5.1)
[2020-04-20 08:00] VITALS: BP 150/76
[2020-04-20 16:00] VITALS: BP 136/76
[2020-04-20 19:10] VITALS: BP 156/53
[2020-04-20 23:45] VITALS: BP 167/70
[2020-04-21 02:06] LABS: HEPATITIS B SURFACE AG Negative (Negative)
[2020-04-21 06:56] VITALS: BP 158/61
[2020-04-21 08:00] VITALS: BP 144/60
[2020-04-21 12:12] VITALS: BP 178/71
[2020-04-21 19:25] VITALS: BP 165/76
[2020-04-22 08:07] VITALS: BP 183/76
[2020-04-22 09:00] LABS: ABSOLUTE BASOPHILS 0.1 thou/uL (0.0-0.2); ABSOLUTE EOSINOPHILS 0.5 thou/uL (0.0-0.7); ABSOLUTE LYMPHOCYTES 0.6 thou/uL (0.8-5.3); ABSOLUTE MONOCYTES 0.7 thou/uL (0.0-1.2); ABSOLUTE NEUTROPHILS 4.9 thou/uL (1.6-8.1); EOSINOPHILS 7.4 %; HEMATOCRIT 32.7 % (42.0-52.0); HEMOGLOBIN 11.3 gm/dL (14.0-18.0); LYMPHOCYTES 8.5 %; MCH 32.8 pg (26.0-34.0); MCHC 34.4 g/dL (28.0-37.0); MCV 95.4 fL (80.0-100.0); MONOCYTES 10.5 %; MPV 8.5 fl. (7.2-11.1); NUCLEATED RBCS 0 /100WBC; PLATELET COUNT* 104 thou/uL (150-400); POLYS 72.6 %; RBC 3.43 mil/uL (4.50-6.00); RDW-CV 15.4 % (10.5-14.5); WBC 6.7 thou/uL (4.0-11.0)
[2020-04-22 09:14] LABS: ALBUMIN 3.8 g/dL (3.4-5.0); CALCIUM 8.6 mg/dL (8.5-10.1); POTASSIUM 4.2 mmol/L (3.5-5.1); TOTAL PROTEIN 7.5 g/dL (6.4-8.2)
[2020-04-22 09:16] LABS: CREATININE 4.4 mg/dL (0.6-1.3)
[2020-04-22] MEDS ORDERED: CEFDINIR300 MG PO (10:37)
[2020-04-22] MEDS ORDERED: CATAPRES0.2 M1 PO (10:37)
[2020-04-22] MEDS ORDERED: VITAMIN B-1100 M1 PO (10:37)
[2020-04-22 13:34] VITALS: BP 147/66
[2020-04-22 17:14] VITALS: BP 138/41
[2020-04-22 20:00] VITALS: BP 157/100
[2020-04-23] VITALS: BP 149/78
[2020-04-23 04:00] VITALS: BP 168/72
[2020-04-23 08:00] VITALS: BP 176/78
--- NOTE | 2020-04-23 12:32 | CON ---
[address] [address] CONSULTATION Name: ALANNA HAMEEDLUIS Hurt Room: [address] IN [place].Leigha.#: [id number] Admission: 04/19/20 Attend Phys: Tyrese Saleh MD Discharge: Date of : 47 Report #: [id number] THIS REPORT FOR: //name// cc: Vj Broderick MD, Abid R. MD ~ THIS REPORT FOR: //name// CC: Vj Saleh DATE OF SERVICE: 04/20/2020 CARDIOLOGY CONSULTATION HISTORY OF PRESENT ILLNESS: The patient is a 74-year-old white male who I was asked to see in the hospital today after he was noted to be in atrial fibrillation. The history was obtained from the patient as well as some old records. The patient was actually admitted to [facility] in July with swollen feet. He primarily receives his care at the [facility]. He has a long history of hypertension. He has a history of permanent atrial fibrillation and was placed on Eliquis in the past. He was noted to have chronic kidney disease. He eventually had a fistula placed in his left arm has been on dialysis Thursday, and Thursday. The patient was admitted here to [facility] in October to complete dialysis. He states recently he has any increasing shortness of breath and swelling of his feet. His legs do hurt. He has been going to dialysis Thursday, and Saturdays. Because of increasing shortness of breath and edema, his son brought him to the Emergency Room yesterday, he was admitted. He denied any fever, cough, chest pain, palpitations, syncope. He does note he has no significant energy. He has had no bleeding problems. PAST MEDICAL HISTORY: No surgical procedures. He does have a history of hypertension. CURRENT MEDICATIONS: Include clonidine, Cardura, hydralazine, amlodipine. ALLERGIES: HE HAS PREVIOUS INTOLERANCE TO INDOCIN. FAMILY HISTORY: His brother had heart disease. SOCIAL HISTORY: Single, lives in [place]. He used to work in a warehouse. No smoking. Rarely drinks alcohol. No illicit drug use. REVIEW OF SYSTEMS: No history of stroke, asthma, peptic ulcer disease, liver disease, cancer, psychiatric, chronic skin condition. PHYSICAL EXAMINATION: [place] [address] CONSULTATION Name: WAGNER HAMEED Room: [address]#: [id number] Admission: 04/19/20 Attend Phys: Tyrese Saleh MD Discharge: Date of : 47 Report #: [id number] GENERAL: Revealed an elderly male, lying in bed. He appeared in no acute distress. VITAL SIGNS: He had a blood pressure of 130/60, pulse 60 and irregular. He is afebrile. HEENT: He is anicteric. Conjunctivae pink. Mucous membranes moist. NECK: Veins do not appear distended. Radiating systolic murmur noted in the carotids. Neck was supple. CHEST: Decreased breath sounds at the bases. CARDIOVASCULAR: Irregular rhythm, grade 3 systolic ejection murmur at left sternal border. ABDOMEN: Soft. EXTREMITIES: Had pitting edema up to the knee area. No dorsalis pedis pulses palpated. SKIN: Cool and dry. NEUROLOGIC: Nonfocal. RADIOLOGICAL DATA: His ECG on admission showed atrial fibrillation, with a slow ventricular response rate, nonspecific ST and T-wave changes. The patient had an echocardiogram performed in July of this year that showed a peak gradient across the aortic valve leaflets of 35 mmHg with ejection fraction 60%, left ventricular hypertrophy, left atrial enlargement, mild mitral regurgitation, and severe pulmonary hypertension. His chest x-ray yesterday showed cardiomegaly, mild pulmonary edema. CT scan of the head was performed in August this year that showed only atrophy. He had a venous duplex scan of the legs was performed in July of this year that showed no DVT. LABORATORY DATA: Sodium 136, BUN 60, creatinine 5.8. Liver function studies were normal. Albumin 3.5. Troponin 0.06. BNP 19,583, TSH 3.2. His white blood cell count 5.9, hematocrit 31.3, platelet count 84,000. IMPRESSION AND RECOMMENDATIONS: 1. Sick sinus syndrome. The rate of his atrial fibrillation is slow despite the fact that he is on no medications that block atrioventricular node conduction. If he develops symptomatic bradycardia, he would require pacemaker. 2. Persistent atrial fibrillation. I would consider resuming Eliquis. 3. End-stage renal disease. The patient is on hemodialysis. 4. Lower extremity edema. Recommend repeat venous duplex scan. 5. Anemia. No history of bleeding. 6. Thrombocytopenia. 7. Mild aortic stenosis. <ELECTRONICALLY SIGNED> By: Chadd Hutchison MD, FACC 04/23/20 1232 1601 1721Davijanine Hutchison MD, FACC /nt
[2020-04-23 13:47] VITALS: BP 129/58
[2020-04-23 19:45] VITALS: BP 151/75
[2020-04-24] VITALS: BP 158/75
[2020-04-24 04:00] VITALS: BP 158/73
[2020-04-24 05:37] LABS: ABSOLUTE BASOPHILS 0.1 thou/uL (0.0-0.2); ABSOLUTE EOSINOPHILS 0.5 thou/uL (0.0-0.7); ABSOLUTE LYMPHOCYTES 0.5 thou/uL (0.8-5.3); ABSOLUTE MONOCYTES 0.4 thou/uL (0.0-1.2); ABSOLUTE NEUTROPHILS 3.9 thou/uL (1.6-8.1); EOSINOPHILS 9.2 %; HEMOGLOBIN 10.7 gm/dL (14.0-18.0); LYMPHOCYTES 9.3 %; MCH 32.6 pg (26.0-34.0); MCHC 34.4 g/dL (28.0-37.0); MCV 94.9 fL (80.0-100.0); MPV 8.5 fl. (7.2-11.1); NUCLEATED RBCS 0 /100WBC; PLATELET COUNT* 96 thou/uL (150-400); POLYS 72.5 %; RBC 3.27 mil/uL (4.50-6.00); RDW-CV 15.3 % (10.5-14.5); WBC 5.4 thou/uL (4.0-11.0)
[2020-04-24 05:46] LABS: CALCIUM 8.2 mg/dL (8.5-10.1); POTASSIUM 4.6 mmol/L (3.5-5.1)
[2020-04-24 05:47] LABS: CREATININE 6.6 mg/dL (0.6-1.3)
[2020-04-24 05:48] LABS: ALBUMIN 3.5 g/dL (3.4-5.0); CALCIUM 8.1 mg/dL (8.5-10.1); PHOSPHORUS* 5.6 mg/dL (2.5-4.9); POTASSIUM 4.6 mmol/L (3.5-5.1)
[2020-04-24 05:52] LABS: CREATININE 6.6 mg/dL (0.6-1.3)
[2020-04-24 08:00] VITALS: BP 177/77
[2020-04-24 12:00] VITALS: BP 172/74
[2020-04-24 16:00] VITALS: BP 138/62
[2020-04-24 19:20] VITALS: BP 162/86
[2020-04-25 00:25] VITALS: BP 116/59
[2020-04-25 06:36] VITALS: BP 122/53
[2020-04-25 08:00] VITALS: BP 166/68
[2020-04-25 08:49] LABS: ABSOLUTE EOSINOPHILS 0.5 thou/uL (0.0-0.7); ABSOLUTE LYMPHOCYTES 0.6 thou/uL (0.8-5.3); ABSOLUTE MONOCYTES 0.5 thou/uL (0.0-1.2); ABSOLUTE NEUTROPHILS 3.8 thou/uL (1.6-8.1); BASOPHILS 0.9 %; EOSINOPHILS 9.2 %; HEMATOCRIT 30.4 % (42.0-52.0); HEMOGLOBIN 10.4 gm/dL (14.0-18.0); LYMPHOCYTES 10.5 %; MCH 32.9 pg (26.0-34.0); MCHC 34.3 g/dL (28.0-37.0); MCV 95.8 fL (80.0-100.0); MONOCYTES 9.3 %; NUCLEATED RBCS 0 /100WBC; PLATELET COUNT* 90 thou/uL (150-400); POLYS 70.1 %; RBC 3.17 mil/uL (4.50-6.00); RDW-CV 15.7 % (10.5-14.5); WBC 5.5 thou/uL (4.0-11.0)
[2020-04-25 09:33] LABS: CALCIUM 8.2 mg/dL (8.5-10.1); CREATININE 5.8 mg/dL (0.6-1.3)
[2020-04-25] MEDS ORDERED: COZAAR 50 MG TA50 M1 PO (11:55)
[2020-04-25 12:37] VITALS: BP 119/66
[2020-04-25 14:18] LABS: HEMOGLOBIN 10.8 gm/dL (14.0-18.0); MCH 33.7 pg (26.0-34.0); MCHC 34.9 g/dL (28.0-37.0); MCV 96.5 fL (80.0-100.0); MPV 8.7 fl. (7.2-11.1); RBC 3.22 mil/uL (4.50-6.00); RDW-CV 15.7 % (10.5-14.5); WBC 7.3 thou/uL (4.0-11.0)
[2020-04-25 14:25] LABS: CALCIUM 8.2 mg/dL (8.5-10.1); CREATININE 5.8 mg/dL (0.6-1.3); POTASSIUM 4.9 mmol/L (3.5-5.1)
[2020-04-25 16:47] VITALS: BP 119/66
== END 2020-04-25 18:05 | disposition home or self-care (01) | DRG 177 ==
LOC: M.ERS 10:50 → M.TBA-ER 13:46 → M.2W 13:46
PROVIDERS: Internal Medicine Nephrology; Physician Assistant; Psychiatry & Neurology Psychiatry; ADMIT Internal Medicine; ATTEND Internal Medicine
PROC: 5A1D70Z Performance of Urinary Filtration, Intermittent, Less than 6 Hours Per Day (ICD-10-PCS; principal; 2020-04-24)
DX: J15.6 Pneumonia due to other Gram-negative bacteria (principal); N18.6 End stage renal disease; I50.33 Acute on chronic diastolic (congestive) heart failure; I48.19 Other persistent atrial fibrillation; I13.2 Hypertensive heart and chronic kidney disease with heart failure and with stage 5 chronic kidney disease, or end stage renal disease; M10.9 Gout, unspecified; I49.5 Sick sinus syndrome; D64.9 Anemia, unspecified; K74.60 Unspecified cirrhosis of liver; F32.9 Major depressive disorder, single episode, unspecified; I35.0 Nonrheumatic aortic (valve) stenosis; D69.6 Thrombocytopenia, unspecified; I16.0 Hypertensive urgency; R60.1 Generalized edema; Z20.828 Contact with and (suspected) exposure to other viral communicable diseases; Z91.15 Patient's noncompliance with renal dialysis; Z88.8 Allergy status to other drugs, medicaments and biological substances; Z79.899 Other long term (current) drug therapy; Z99.2 Dependence on renal dialysis

== ENCOUNTER 2020-10-15 10:23 | Inpatient (IN) | payer OTHER ==
[~2020-10-15] VITALS: Ht 182.9 cm; Wt 87.1 kg
[~2020-10-15 10:23] MED LIST changes: +CATAPRES0.2 M1 PO; +CEFDINIR300 MG PO; +COZAAR 50 MG TA50 M1 PO; +ELIQUIS2.5 MG PO; +NORVASC 2.5 MG2.5 M1 PO; +VITAMIN B-1100 M1 PO
[2020-10-15 10:31] VITALS: BP 206/94
[2020-10-15] MEDS ORDERED: CLONIDINE HCL0.1 M1 PO (10:35)
[2020-10-15 10:52] LABS: ABSOLUTE BASOPHILS 0.1 thou/uL (0.0-0.2); ABSOLUTE EOSINOPHILS 0.2 thou/uL (0.0-0.7); ABSOLUTE LYMPHOCYTES 0.6 thou/uL (0.8-5.3); ABSOLUTE MONOCYTES 0.5 thou/uL (0.0-1.2); ABSOLUTE NEUTROPHILS 3.9 thou/uL (1.6-8.1); BASOPHILS 1.4 %; EOSINOPHILS 4.6 %; HEMOGLOBIN 9.9 gm/dL (14.0-18.0); MCHC 34.1 g/dL (28.0-37.0); MCV 102.5 fL (80.0-100.0); MONOCYTES 9.6 %; MPV 7.8 fl. (7.2-11.1); NUCLEATED RBCS 0 /100WBC; PLATELET COUNT* 116 thou/uL (150-400); POLYS 73.4 %; RBC 2.83 mil/uL (4.50-6.00); RDW-CV 15.6 % (10.5-14.5); WBC 5.3 thou/uL (4.0-11.0)
[2020-10-15 11:06] LABS: ANION GAP 12 mmol/L (7-16); BUN 71 mg/dL (7-18); CALCIUM 7.8 mg/dL (8.5-10.1); CHLORIDE 102 mmol/L (98-107); CO2 26 mmol/L (21-32); CREATININE 6.5 mg/dL (0.6-1.3); GLUCOSE 154 mg/dL (70-99); POTASSIUM 4.3 mmol/L (3.5-5.1); SODIUM 140 mmol/L (136-145)
[2020-10-15 11:15] LABS: ALKALINE PHOSPHATASE 126 U/L (46-116); NT-PRO BRAIN NAT PEPTIDE > 35000 pg/mL (<300); SGOT 28 U/L (15-37); SGPT 28 U/L (30-65); TOTAL BILIRUBIN 0.5 mg/dL (<0.1-1.0); TOTAL PROTEIN 6.5 g/dL (6.4-8.2)
[2020-10-15 11:39] LABS: APTT 28.3 Seconds (25.0-31.3)
[2020-10-15 11:40] LABS: PROTIME 10.8 Seconds (9.20-11.50)
[2020-10-15 14:11] VITALS: BP 183/79
--- NOTE | 2020-10-15 17:10 | EKG ---
[place] [address] ELECTROCARDIOGRAM REPORT Name: WAGNER HAMEED Room: [address] ADM IN .R.#: [id number] Admission: 10/15/20 Attend Phys: Regine Stover, Discharge: Date of : 47 Date of Service: 10/15/20 1057 Report #: [id number] THIS REPORT FOR: //name// [facility] ED Test Date: 2020-10-15 Test Time: 10:57:03 Pat Name: WAGNER HAMEED Department: Room: [facility] Gender: M Pharmacy Assistant: [facility] : 1945 Requested By: Reilly Chavira Order Number: [id number] MD: Fish Montes Measurements Intervals [place] Rate: 61 P: [place]: QRS: 31 QRSD: 97 T: 175 QT: 366 QTc: 369 Interpretive Statements Atrial fibrillation RSR' in V1 or V2, probably normal variant Repol abnrm suggests ischemia, lateral leads Baseline wander in lead(s) V3 Compared to ECG 04/19/2020 12:15:48 Early repolarization now present T-wave abnormality no longer present Possible ischemia still present Electronically Signed On 10-15-2020 17:09:54 CDT by Fish Montes [email or web address] <ELECTRONICALLY SIGNED> By: Fish Montes MD, [facility] 10/15/20 1709 1057 1057 Fish Montes MD, [facility] /EPI
[2020-10-15 20:00] VITALS: BP 165/60
[2020-10-15 23:57] VITALS: BP 180/74
[2020-10-16 02:06] LABS: GLYCOHEMOGLOBIN (HGB A1C) 5.4 % (4.8-5.6)
[2020-10-16 04:33] VITALS: BP 190/88
[2020-10-16 05:03] LABS: HEMATOCRIT 28.6 % (42.0-52.0); HEMOGLOBIN 9.9 gm/dL (14.0-18.0); MCH 34.7 pg (26.0-34.0); MCHC 34.5 g/dL (28.0-37.0); MCV 100.7 fL (80.0-100.0); RBC 2.84 mil/uL (4.50-6.00); RDW-CV 15.2 % (10.5-14.5); WBC 5.3 thou/uL (4.0-11.0)
[2020-10-16 05:29] LABS: ALBUMIN 3.1 g/dL (3.4-5.0); MAGNESIUM 1.8 mg/dL (1.8-2.4); POTASSIUM 3.6 mmol/L (3.5-5.1); TOTAL BILIRUBIN 0.5 mg/dL (<0.1-1.0); TOTAL PROTEIN 6.6 g/dL (6.4-8.2)
[2020-10-16 05:30] LABS: CREATININE 4.4 mg/dL (0.6-1.3)
[2020-10-16 08:08] VITALS: BP 185/93
[2020-10-16 12:35] VITALS: BP 166/86
[2020-10-16 14:05] LABS: CLARITY SLIGHTLY HAZY; SOURCE PLEURAL FLUID; TOTAL VOLUME 1760 ml
[2020-10-16 14:26] LABS: BF RBC <1000 /mm3; TOTAL CELL COUNT 104 /mm3
[2020-10-16 15:00] LABS: BF LYMPHOCYTES 70 %; BF POLYS 30 %; BF TISSUE 38 /100 WBC
[2020-10-16 16:00] VITALS: BP 152/68
[2020-10-17 04:00] VITALS: BP 151/72
[2020-10-17 05:53] LABS: HEMATOCRIT 29.7 % (42.0-52.0); HEMOGLOBIN 10.1 gm/dL (14.0-18.0); MCH 34.9 pg (26.0-34.0); MCHC 34.1 g/dL (28.0-37.0); MCV 102.5 fL (80.0-100.0); MPV 7.8 fl. (7.2-11.1); RBC 2.9 mil/uL (4.50-6.00); WBC 7.1 thou/uL (4.0-11.0)
[2020-10-17 06:11] LABS: ALBUMIN 3.1 g/dL (3.4-5.0); CALCIUM 8.9 mg/dL (8.5-10.1); CREATININE 3.9 mg/dL (0.6-1.3); MAGNESIUM 1.9 mg/dL (1.8-2.4); POTASSIUM 4.1 mmol/L (3.5-5.1); TOTAL BILIRUBIN 0.9 mg/dL (<0.1-1.0); TOTAL PROTEIN 6.7 g/dL (6.4-8.2)
[2020-10-17 08:13] VITALS: BP 155/66
--- NOTE | 2020-10-17 14:28 | 2DMMODE ---
[place] [address] 2 D/M-MODE ECHOCARDIOGRAM Name: WAGNER HAMEED Room: [address] IN [facility]#: [id number] Admission: 10/15/20 Attend Phys: Regine Stover, Discharge: Date of : 47 Date of Service: 10/16/20 1633 Report #: [id number] THIS REPORT FOR: cc: [facility] - Clinic physician unknown [facility] - Clinic physician unknown Fish Montes MD [facility] ~ APPROVED REPORT Study performed: 10/16/2020 15:09:58 EXAM: Comprehensive 2D, Doppler, and color-flow Echocardiogram Patient Location: In-Patient Room #: [facility] Status: routine BSA: 2.13 HR: 72 bpm BP: 190/88 mmHg Other Information Study Quality: Good Indications Bradycardia 2D Dimensions IVSd: 14.89 (7-11mm) LVOT Diam: 19.71 (18-24mm) LVDd: 49.40 mm PWd: 13.35 (7-11mm) Ascending Ao: 37.88 (22-36mm) LVDs: 30.06 (25-40mm) Aortic Root: 34.73 mm Volumes Left Atrial Volume (Systole) LA ESV Index: 55.40 mL/m2 Aortic Valve AoV Peak Mat.: 2.75 m/s AO Peak Gr.: 30.25 mmHg LVOT Max P.46 mmHg AO Mean Gr.: 16.98 mmHg LVOT Mean P.10 mmHg LVOT Max V: 1.45 m/s AO V2 VTI: 53.97 cm LVOT Mean V: 0.93 m/s MIRANDA (VTI): 1.82 cm2 LVOT V1 VTI: 32.21 [place] [address] 2 D/M-MODE ECHOCARDIOGRAM Name: WAGNER HAMEED Room: [address]#: [id number] Admission: 10/15/20 Attend Phys: Regine Stover, Discharge: Date of : 47 Date of Service: 10/16/20 1633 Report #: [id number] E/A Ratio: 5.27 MV Decel. Time: 169.90 ms MV E Max Mat.: 1.42 m/s MV PHT: 49.27 ms MVA (PHT): 4.47 cm2 TDI E/Lateral E': 10.92 E/Medial E': 15.78 Medial E' Mat.: 0.09 m/s Lateral E' Mat.: 0.13 m/s Pulmonary Valve PV Peak Mat.: 1.54 m/s PV Peak Gr.: 9.49 mmHg Tricuspid Valve RAP Estimate: 5.00 mmHg TR Peak Gr.: 57.67 mmHg RVSP: 62.00 mmHg PA Pressure: 62.00 mmHg Left Ventricle The left ventricle is normal size. There is normal LV segmental wall motion. Mild concentric left ventricular hypertrophy. Left ventricular systolic function is normal. LVEF is 55-60%. This study is not technically sufficient to allow evaluation of the LV diastolic function due to atrial fibrillation. Right Ventricle Right ventricle is mildly dilated. The right ventricular systolic function is normal. Atria Left atrium is severely dilated. Right atrium is moderately dilated. Aortic Valve The Aortic valve is sclerotic. No aortic regurgitation is present. Mild to moderate aortic stenosis. Mitral Valve There is mitral annular calcification. Mild mitral regurgitation. No evidence of mitral valve stenosis. Tricuspid Valve The tricuspid valve is normal in structure. Mild tricuspid regurgitation. Moderate pulmonary hypertension. The RVSP is 55-60 [place] [address] 2 D/M-MODE ECHOCARDIOGRAM Name: WAGNER HAMEED Room: [address]#: [id number] Admission: 10/15/20 Attend Phys: Regine Stover, Discharge: Date of : 47 Date of Service: 10/16/20 1633 Report #: [id number] Pulmonic Valve The pulmonary valve is normal in structure. There is no pulmonic valvular regurgitation. Great Vessels The aortic root is normal in size. IVC is normal in size and collapses >50% with inspiration. Pericardium There is no pericardial effusion. <Conclusion> The left ventricle is normal size. Mild concentric left ventricular hypertrophy. Left ventricular systolic function is normal. LVEF is 55-60%. This study is not technically sufficient to allow evaluation of the LV diastolic function due to atrial fibrillation. There is normal LV segmental wall motion. Left atrium is severely dilated. Right atrium is moderately dilated. Right ventricle is mildly dilated. The Aortic valve is sclerotic. Mild to moderate aortic stenosis. Mild mitral regurgitation. Mild tricuspid regurgitation. Moderate pulmonary hypertension. The RVSP is 55-60 mmHg. <ELECTRONICALLY SIGNED> By: Fish Montes MD, FACC 10/16/20 1633 1633 1633 Fish Montes MD, FACC /INF
[2020-10-17 15:34] VITALS: BP 139/57
[2020-10-17 21:56] VITALS: BP 144/61
[2020-10-18 04:00] VITALS: BP 145/70
[2020-10-18 04:29] LABS: HEMATOCRIT 30.1 % (42.0-52.0); HEMOGLOBIN 10.2 gm/dL (14.0-18.0); MCH 34.9 pg (26.0-34.0); MCHC 33.9 g/dL (28.0-37.0); MCV 102.9 fL (80.0-100.0); MPV 7.8 fl. (7.2-11.1); RBC 2.92 mil/uL (4.50-6.00); WBC 5.9 thou/uL (4.0-11.0)
[2020-10-18 05:15] LABS: ALBUMIN 3.1 g/dL (3.4-5.0); CALCIUM 7.9 mg/dL (8.5-10.1); CREATININE 3.4 mg/dL (0.6-1.3); MAGNESIUM 1.9 mg/dL (1.8-2.4); POTASSIUM 4.2 mmol/L (3.5-5.1); TOTAL BILIRUBIN 0.6 mg/dL (<0.1-1.0); TOTAL PROTEIN 6.2 g/dL (6.4-8.2)
[2020-10-18 08:00] VITALS: BP 157/61
[2020-10-18 12:00] VITALS: BP 154/72
[2020-10-18 16:00] VITALS: BP 138/57
--- NOTE | 2020-10-18 18:20 | CON ---
[address] [address] CONSULTATION Name: LEO HAMEEDTamir Hurt Room: [address] IN M.R.#: [id number] Admission: 10/15/20 Attend Phys: Regine Stover MD Discharge: Date of : 47 Report #: [id number] THIS REPORT FOR: cc: [facility] - Clinic physician unknown [facility] - Clinic physician unknown Yoav Laughlin MD ~ DATE OF SERVICE: 10/17/2020 REQUESTING PHYSICIAN: Regine Stover MD. INDICATION FOR CONSULTATION: Pleural effusion and pneumonia. HISTORY OF PRESENT ILLNESS: A 74-year-old gentleman, past medical history includes a history of end-stage renal disease. The patient is on hemodialysis Tuesdays, and Saturdays. The patient missed hemodialysis last Thursday. He also does have a history of atrial fibrillation, previously was on Eliquis, but is currently not on anticoagulation. He is a lifetime nonsmoker. There is significant elevation in right heart pressures up to 62 on the last echo, but his left ventricular ejection fraction is normal. The patient is now admitted with worsening shortness of breath over the last several days. He has also been coughing. He says he is bringing up sputum. He does not describe the color of the sputum. He does have increasing swelling of lower extremities as well. He has not complained of calf pain. He is not describing any upper respiratory complaints. There is no fever. The patient does state that he has some sleep complaints. He is awake regarding whether he has daytime sleepiness. My impression is that he likely has daytime sleepiness. The patient was admitted the day before yesterday. The patient was found to have a large pleural effusion on the right side. There was suspicion of infiltrate as well. He was started on ceftriaxone as well as azithromycin. Yesterday, he underwent a thoracentesis, 1700 mL of fluid were removed. The patient, since then, reports improvement in shortness of breath. The patient has also just had hemodialysis and has had fluid taken off by hemodialysis as well. His subsequent chest x-ray today; however, still does show a significant residual pleural effusion. I suspect that there are underlying infiltrates and atelectasis as well. The patient currently is on room air. He initially required 2 liters of oxygen to maintain O2 saturation in the mid 90s. This is no longer the case. His O2 saturation is in the low 90s on room air at this time, though he does not appear to be in any distress. The patient was fully awake. He did provide me a rather limited history. He; however, answered to the negative to 12 questions for review of systems with the exception of having some muscle weakness and earlier he reported as stated, he had some muscle stiffness. He also reports that he has had scrotal [place] [address] CONSULTATION Name: WAGNER HAMEED Room: [address] IN [facility]#: [id number] Admission: 10/15/20 Attend Phys: Regine Stover MD Discharge: Date of : 47 Report #: [id number] discomfort as well as orthopnea. He does report that he has had changes in appetite. REVIEW OF SYSTEMS: For 12 points is negative except as mentioned above. PAST MEDICAL HISTORY: End-stage renal disease, on hemodialysis; pulmonary hypertension, pulmonary artery systolic on the last echo is 62, left ventricular ejection fraction is normal at 60-65%; however, he does have significant left ventricular hypertrophy, hypertension, atrial fibrillation, previously was on Eliquis, this was subsequently discontinued. He currently is not on Eliquis at home. Gout. SOCIAL HISTORY: Lifetime nonsmoker. No known history of illegal drug use. He does state that he at times uses alcohol, I am not aware of his exact alcohol intake and there is no documentation of heavy alcohol use. CURRENT MEDICATIONS: List in [facility] reviewed. HOME MEDICATIONS: List also in [facility] reviewed. ALLERGIES: HE IS HAVING EITHER AN ALLERGY OR ADVERSE REACTION TO INDOMETHACIN. FAMILY HISTORY: There is no pertinent family history known at this time. PHYSICAL EXAMINATION: GENERAL: He was alert, awake and oriented. VITAL SIGNS: He has a pulse of 71 and a blood pressure of 155/66. He is not on supplemental oxygen. O2 saturation before he had hemodialysis was 91. He has just finished hemodialysis, now with 2 liters of fluid removed. Respiratory rate is around 16-18. He is not in any distress. He has a low-grade fever of 37.6, body mass index is 72. HEENT: Head is normocephalic and atraumatic. Pupils are equal and reactive. There is no throat erythema. Airway is narrow around Mallampati 3. There is no thrush in his throat. NECK: Does not show raised JVP, asymmetry, mass or lymph nodes. CHEST: Symmetrical expansion on inspection and palpation. On auscultation, there were rare expiratory wheezes with minimal bilateral basilar rales. Expirations do appear to be prolonged. Breath sounds are decreased at the right lung base. HEART: Irregular. There is no murmur. ABDOMEN: Mildly distended, nontender. EXTREMITIES: Lower extremities show 2-3+ edema bilaterally. There is no calf tenderness. SKIN: Dry and intact. [address] [address] CONSULTATION Name: WAGNER HAMEED Room: [address] IN .R.#: [id number] Admission: 10/15/20 Attend Phys: Regine Stover MD Discharge: Date of : 47 Report #: [id number] NEUROLOGICAL: Moves all extremities bilaterally, equally and spontaneously with no focal deficit identified. LABORATORY DATA: The patient's chest x-ray repeated twice as above. Thoracentesis as above. I have the cell count available on the pleural fluid. This was reviewed. Rest of the testing on the pleural fluid is pending at this time. The patient's lab work is in [facility] and this is reviewed. ASSESSMENT AND PLAN: 1. Shortness of breath. He is obviously fluid overloaded, which will lead to shortness of breath. In addition, he does have a pleural effusion on the right side and likely has underlying infiltrates. Thromboembolism is not fully ruled out. Underlying mass is not ruled out at this point. 2. Pleural effusion. I would like to try to characterize this further. We will go ahead and obtain a CT chest without contrast. It will be possible that we repeat a thoracentesis. Meanwhile, I ordered additional studies. On the pleural fluid, we will follow certainly. This could be secondary to his renal failure. This could also be parapneumonic. There is no evidence of a malignancy at this point; however, we have not fully ruled out any underlying mass. 3. Pulmonary infiltrates. See discussion as above. We will try to do a sputum culture if he brings up any sputum. We will do a nasal swab for methicillin-resistant Staphylococcus aureus. Agree with azithromycin and ceftriaxone. 4. Pulmonary hypertension with a pulmonary artery systolic of 62. Fairly significant pulmonary hypertension is noted on the last echo. We will plan on repeating an echo once he is euvolemic. He has edema, so I would like to do venous Doppler, then rule out a DVT. He has renal failure, also held off on a CTA chest. I understand that he was on Eliquis, previously for atrial fibrillation, which was subsequently discontinued due to adverse effects. 5. End-stage renal disease, on hemodialysis. He just had hemodialysis. I understand he missed hemodialysis on last Thursday. Fluid has been removed with hemodialysis. 6. Suspected obstructive sleep apnea. If the patient is interested, then I suggest obtaining a sleep study as an outpatient. Also suggest obtaining a nocturnal pulse oximetry before his discharge. Considering his pulmonary hypertension, the likelihood is that he is hypoxemic, while asleep and will benefit from oxygen while asleep. 7. History of atrial fibrillation. 8. History of hypertension. 9. Deep vein thrombosis prophylaxis noted to be on subcutaneous heparin. 10. Bronchospasm. I feel this is a component of this as well, likely to improve as his fluid status is improved. I ordered albuterol for now, I did not order steroids. Certainly, if this fails to improve, [place] [address] CONSULTATION Name: WAGNER HAMEED Room: [address] IN ..#: [id number] Admission: 10/15/20 Attend Phys: Regine Stover MD Discharge: Date of : 47 Report #: [id number] consideration later. Thanks for this consultation. <ELECTRONICALLY SIGNED> By: Yoav Laughlin MD 10/18/20 1820 1331 [id number] Laughlin MD /nt
[2020-10-18 20:00] VITALS: BP 137/59
[2020-10-19] VITALS: BP 143/68
[2020-10-19 03:54] VITALS: BP 146/81
[2020-10-19 08:00] VITALS: BP 152/65
--- NOTE | 2020-10-19 08:08 | PATH ---
[address] [address] PATHOLOGY RPT PROCEDURE Name: WAGNER HAMEED Room: [address] IN [facility]#: [id number] Admission: 10/15/20 Date of : 47 Discharge: Report #: [id number] Path Case #: [id number] Note [facility] Accession Number: [id number] TESTS RESULT FLAG UNITS REF RANGE LAB Clinician Provided Cytology Information No. of containers..01 Other (Miscellaneous) Source: RT PLEURAL FLUID DIAGNOSIS: RT PLEURAL FLUID NEGATIVE FOR MALIGNANT CELLS. SCANT CELLULARITY WITH FEW MESOTHELIAL AND INFLAMMATORY CELLS. THIS INTERPRETATION INCLUDES EVALUATION OF A CELL BLOCK. Signed out by: 02 Eleno Friedman MD, Pathologist NPI- [id number] Performed by: 01 Namita Narvaez, Interviewing Clerk ([facility]) Gross description: 01 13ML, YELLOW, 1TP 1CB /LCS 10/18/2020 0640 Local FLAG LEGEND: L-Low Normal,H-High Normal,LL-Alert Low,HH-Alert High <-Panic Low,>-Panic High,A-Abnormal,AA-Critical Abnormal Performed at: [address] [place] [address] Vic Gonzalez MD, [address] [address] Eleno Friedman MD, Performed at: [address], [place], [place] [id number] MD Vic Gonzalez MD Phone: [phone]
[2020-10-19] MEDS ORDERED: CLONIDINE HCL0.1 MG PO (10:07)
[2020-10-19] MEDS ORDERED: CEFDINIR300 MG PO ×2 (10:07→11:26)
[2020-10-19] MEDS ORDERED: ELIQUIS5 MG PO (10:07)
[2020-10-19] MEDS ORDERED: PROCARDIA XL30 MG PO (10:07)
[2020-10-19] MEDS ORDERED: PROAIR HFA8.5 GM INH (10:07)
[2020-10-19 11:47] VITALS: BP 152/65
== END 2020-10-19 12:55 | disposition home or self-care (01) | DRG 177 ==
LOC: M.ERS 10:23 → M.TBA-ER 12:48 → M.2W 12:48
PROVIDERS: Family Medicine; ADMIT Internal Medicine; ATTEND Internal Medicine
PROC: 5A1D70Z Performance of Urinary Filtration, Intermittent, Less than 6 Hours Per Day (ICD-10-PCS; principal; 2020-10-15)
PROC: 0W993ZZ Drainage of Right Pleural Cavity, Percutaneous Approach (ICD-10-PCS; 2020-10-16)
PROC: 5A1D70Z Performance of Urinary Filtration, Intermittent, Less than 6 Hours Per Day (ICD-10-PCS; 2020-10-16)
PROC: 5A1D70Z Performance of Urinary Filtration, Intermittent, Less than 6 Hours Per Day (ICD-10-PCS; 2020-10-17)
PROC: 5A1D70Z Performance of Urinary Filtration, Intermittent, Less than 6 Hours Per Day (ICD-10-PCS; 2020-10-18)
DX: J15.6 Pneumonia due to other Gram-negative bacteria (principal); N18.6 End stage renal disease; I50.33 Acute on chronic diastolic (congestive) heart failure; I48.20 Chronic atrial fibrillation, unspecified; I13.2 Hypertensive heart and chronic kidney disease with heart failure and with stage 5 chronic kidney disease, or end stage renal disease; J91.8 Pleural effusion in other conditions classified elsewhere; I16.1 Hypertensive emergency; M10.9 Gout, unspecified; I27.20 Pulmonary hypertension, unspecified; F41.9 Anxiety disorder, unspecified; D64.9 Anemia, unspecified; D69.6 Thrombocytopenia, unspecified; I87.8 Other specified disorders of veins; I35.0 Nonrheumatic aortic (valve) stenosis; Z20.822 Contact with and (suspected) exposure to COVID-19; Z91.15 Patient's noncompliance with renal dialysis; Z88.8 Allergy status to other drugs, medicaments and biological substances; Z99.2 Dependence on renal dialysis; Z79.899 Other long term (current) drug therapy

== ENCOUNTER 2021-02-24 09:46 | Emergency (ER) | payer OTHER ==
[~2021-02-24] VITALS: Ht 182.9 cm; Wt 83.9 kg
[~2021-02-24 09:46] MED LIST changes: +CLONIDINE HCL0.1 M1 PO; +CLONIDINE HCL0.1 MG PO; +ELIQUIS5 MG PO; +PROAIR HFA8.5 GM INH; +PROCARDIA XL30 MG PO
[2021-02-24 14:40] LABS: HEMATOCRIT 34.5 % (42.0-52.0); HEMOGLOBIN 11.6 gm/dL (14.0-18.0); MCH 34.1 pg (26.0-34.0); MCHC 33.5 g/dL (28.0-37.0); MCV 101.7 fL (80.0-100.0); MPV 7.7 fl. (7.2-11.1); RBC 3.39 mil/uL (4.50-6.00); RDW-CV 15.3 % (10.5-14.5); WBC 4.5 thou/uL (4.0-11.0)
[2021-02-24 14:47] LABS: CALCIUM 8.5 mg/dL (8.5-10.1); CREATININE 5.2 mg/dL (0.6-1.3); POTASSIUM 4.3 mmol/L (3.5-5.1)
[2021-02-24 15:07] VITALS: BP 191/77
== END 2021-02-24 15:07 | disposition home or self-care (01) ==
LOC: M.ERS 09:46
PROVIDERS: Emergency Medicine Emergency Medical Services
DX: R60.0 Localized edema (principal); I87.8 Other specified disorders of veins; I87.2 Venous insufficiency (chronic) (peripheral); M10.9 Gout, unspecified; I48.91 Unspecified atrial fibrillation; I13.2 Hypertensive heart and chronic kidney disease with heart failure and with stage 5 chronic kidney disease, or end stage renal disease; N18.6 End stage renal disease; I50.9 Heart failure, unspecified; Z88.6 Allergy status to analgesic agent; Z79.899 Other long term (current) drug therapy; Z99.2 Dependence on renal dialysis

== ENCOUNTER 2021-04-10 12:55 | Inpatient (IN) | payer OTHER, MEDICARE ==
[~2021-04-10] VITALS: Ht 182.9 cm; Wt 80.7 kg
--- NOTE | ~2021-04-10 | CON ---
[address] [address] CONSULTATION Name: WAGNER HAMEED Room: [address] IN M.R.#: [id number] Admission: 04/10/21 Attend Phys: Janine Amos Discharge: Date of : 47 Report #: [id number] THIS REPORT FOR: cc: [facility] - Clinic physician unknown [facility] - Clinic physician unknown Vj Broderick MD ~ DATE OF CONSULTATION: 04/11/2021 NEPHROLOGY CONSULT CONSULTING PHYSICIAN: Dr. Giordano. REASON FOR CONSULTATION: End-stage kidney disease. HISTORY OF PRESENT ILLNESS: A 75-year-old gentleman with a history of end-stage kidney disease, on hemodialysis Thursday, Thursday and Thursday, missed his dialysis yesterday and was admitted with shortness of breath. He has been evaluated by cardiology and also had an echocardiogram showing an EF of 60-65%, dilated IVC. His breathing is better after undergoing dialysis today, which he tolerated. He currently has no complaints. REVIEW OF SYSTEMS: Constitutional, psych, heme, eyes, ENT, respiratory, cardiac, GI, , endocrine, all negative except as documented above. PAST MEDICAL HISTORY: End-stage kidney disease, on hemodialysis, hypertension, atrial fibrillation. SOCIAL HISTORY: No tobacco. FAMILY HISTORY: Not pertinent in this 75-year-old gentleman. CURRENT MEDICATIONS: Reviewed. PHYSICAL EXAMINATION: VITAL SIGNS: Blood pressure 159/82, pulse 61, respirations 18, temperature 36.9. GENERAL: No acute distress. EYES: Open. EARS: Externally normal. NECK: Supple. CARDIOVASCULAR: Regular rate. LUNGS: Diminished. ABDOMEN: Soft. MUSCULOSKELETAL: Nontender. PSYCHIATRIC: Awake, [place] [address] CONSULTATION Name: WAGNER HAMEED Room: [address] IN .R.#: [id number] Admission: 04/10/21 Attend Phys: Janine Amos Discharge: Date of : 47 Report #: [id number] LABORATORY DATA: White cell count 8, hemoglobin 8.5, platelets 188. Sodium 133, potassium 5.2, chloride 96, bicarbonate 30, BUN 52, creatinine 5.2, glucose 110, calcium 8.6, albumin 2.8. ASSESSMENT: 1. End-stage kidney disease, hemodialysis Thursday, Thursday and Thursday at the [facility]. 2. Hypertension. 3. History of volume overload. 4. History of atrial fibrillation. 5. History of gout. PLAN: The patient tolerated the dialysis well, 1.5 liter per day fluid restriction. He had 3 kilos of fluid removed with dialysis today. On Thursday, he had 2.7 liters of fluid removed, but left dialysis about 6 kilos above his dry weight. Prior to that on Thursday, 04/05, he was about 4 kilos above his dry weight and prior to that, he had been doing better with interdialytic weight gains. We will plan dialysis again tomorrow to resume his normal schedule and to remove more fluid. He currently appears to be comfortable. From a renal standpoint, discharge planning is okay. We will follow along with you and start him on resume a renal multivitamin. By: 1445 1902Abijanine Broderick MD /nt
[2021-04-10 13:08] VITALS: BP 135/65
[2021-04-10 13:30] LABS: ABSOLUTE BASOPHILS 0.1 thou/uL (0.0-0.2); ABSOLUTE EOSINOPHILS 0.3 thou/uL (0.0-0.7); ABSOLUTE LYMPHOCYTES 0.6 thou/uL (0.8-5.3); ABSOLUTE NEUTROPHILS 6.1 thou/uL (1.6-8.1); EOSINOPHILS 4.1 %; HEMATOCRIT 24.5 % (42.0-52.0); HEMOGLOBIN 8.5 gm/dL (14.0-18.0); LYMPHOCYTES 6.9 %; MCH 34.6 pg (26.0-34.0); MCHC 34.8 g/dL (28.0-37.0); MCV 99.6 fL (80.0-100.0); MONOCYTES 12.1 %; NUCLEATED RBCS 0 /100WBC; PLATELET COUNT* 188 thou/uL (150-400); POLYS 75.9 %; RBC 2.46 mil/uL (4.50-6.00); RDW-CV 16.8 % (10.5-14.5)
[2021-04-10 13:41] LABS: CALCIUM 8.6 mg/dL (8.5-10.1); CREATININE 5.2 mg/dL (0.6-1.3); POTASSIUM 5.2 mmol/L (3.5-5.1)
[2021-04-10 13:53] LABS: ALBUMIN 2.8 g/dL (3.4-5.0); TOTAL BILIRUBIN 0.4 mg/dL (<0.1-1.0); TOTAL PROTEIN 6.9 g/dL (6.4-8.2)
--- NOTE | 2021-04-10 15:11 | EKG ---
[place] [address] ELECTROCARDIOGRAM REPORT Name: WAGNER HAMEED Room: [facility]#: [id number] Admission: 04/10/21 Attend Phys: Discharge: Date of : 47 Date of Service: 04/10/21 1340 Report #: [id number] THIS REPORT FOR: //name// [facility] ED Test Date: 2021-04-10 Test Time: 13:40:05 Pat Name: WAGNER HAMEED Department: Room: Gender: Commercial [employer] Editor: [facility] : 1945 Requested By: Jocelynn Kelly Order Number: [id number] MD: Chadd Hutchison Measurements Intervals Oriental Rate: 66 P: SD: QRS: 18 QRSD: 97 T: 116 QT: 465 QTc: 488 Interpretive Statements Atrial fibrillation Abnrm T, consider ischemia, anterolateral lds Compared to ECG 10/15/2020 10:57:03 Early repolarization no longer present Possible ischemia still present Electronically Signed On 04-10-2021 15:11:34 CDT by Chadd Hutchison [email or web address] <ELECTRONICALLY SIGNED> By: Chadd Hutchison MD, FAC 04/10/21 1511 1340 1340 Chadd Hutchison MD, [facility] /EPI
[2021-04-10 19:35] VITALS: BP 130/52
[2021-04-10 21:00] VITALS: BP 103/81
[2021-04-11] VITALS (7 sets, daily range): BP systolic 86–177; BP diastolic 39–82
--- NOTE | 2021-04-11 14:53 | 2DMMODE ---
[place] [address] 2 D/M-MODE ECHOCARDIOGRAM Name: ALANNA HAMEEDLUIS Hurt Room: [address] IN [facility]#: [id number] Admission: 04/10/21 Attend Phys: Ranjit Giordano Discharge: Date of : 47 Date of Service: 04/11/21 1452 Report #: [id number] THIS REPORT FOR: cc: [facility] - Clinic physician unknown [facility] - Clinic physician unknown Fish Montes MD [facility] ~ APPROVED REPORT Study performed: 04/11/2021 09:41:08 EXAM: Comprehensive 2D, Doppler, and color-flow Echocardiogram Patient Location: In-Patient Room #: [facility] Status: routine BSA: 2.05 HR: 69 bpm BP: 177/60 mmHg Rhythm: Atrial Fibrillation Other Information Study Quality: Good Indications Dyspnea 2D Dimensions IVSd: 12.25 (7-11mm) LVOT Diam: 22.01 (18-24mm) LVDd: 48.37 mm PWd: 14.29 (7-11mm) Volumes Left Atrial Volume (Systole) LA ESV Index: 72.80 mL/m2 Aortic Valve AoV Peak Mat.: 3.19 m/s AO Peak Gr.: 40.81 mmHg LVOT Max P.01 mmHg AO Mean Gr.: 21.01 mmHg LVOT Mean P.28 mmHg LVOT Max V: 1.42 m/s AO V2 VTI: 62.37 cm LVOT Mean V: 0.96 m/s MIRANDA (VTI): 1.84 cm2 LVOT V1 VTI: 30.13 cm Tricuspid Valve RAP Estimate: 15.00 [place] [address] 2 D/M-MODE ECHOCARDIOGRAM Name: YUERoyalWAGNER Hurt Room: [address]#: [id number] Admission: 04/10/21 Attend Phys: Ranjit Giordano Discharge: Date of : 47 Date of Service: 04/11/21 1452 Report #: [id number] Peak Gr.: 61.95 mmHg RVSP: 76.00 mmHg PA Pressure: 76.00 mmHg Left Ventricle The left ventricle is normal size. There is normal LV segmental wall motion. Mild concentric left ventricular hypertrophy. The left ventricular systolic function is normal. LVEF is 60-65%. This study is not technically sufficient to allow evaluation of the LV diastolic function due to atrial fibrillation. Right Ventricle Right ventricle is moderately dilated. The right ventricular systolic function is normal. Atria Left atrium is moderately dilated. Right atrium is moderately dilated. Aortic Valve Moderate aortic valve sclerosis. No aortic regurgitation is present. Moderate aortic stenosis. Mitral Valve There is mitral annular calcification. Mild mitral regurgitation. Tricuspid Valve The tricuspid valve is normal in structure. Moderate tricuspid regurgitation. Severe pulmonary hypertension. The RVSP is 80 mmHg. Pulmonic Valve The pulmonary valve is normal in structure. Great Vessels The aortic root is normal in size. IVC is dilated and collapses <50% with inspiration. Pericardium There is no pericardial effusion. <Conclusion> The left ventricle is normal size. Mild concentric left ventricular hypertrophy. The left ventricular systolic function is normal. LVEF is 60-65%. [place] [address] 2 D/M-MODE ECHOCARDIOGRAM Name: WAGNER HAMEED Room: [address] IN [facility].#: [id number] Admission: 04/10/21 Attend Phys: Ranjit Giordano Discharge: Date of : 47 Date of Service: 04/11/211451 Report #: [id number] Right ventricle is moderately dilated. Left atrium is moderately dilated. Right atrium is moderately dilated. Moderate aortic valve sclerosis. Moderate aortic stenosis. Mild mitral regurgitation. Moderate tricuspid regurgitation. Severe pulmonary hypertension. The RVSP is 80 mmHg. IVC is dilated and collapses <50% with inspiration. <ELECTRONICALLY SIGNED> By: Fish Montes MD, [facility] 04/11/211451 51 1452 Fish Montes MD, FACC /INF
[2021-04-12] VITALS (7 sets, daily range): BP systolic 104–132; BP diastolic 47–59
[2021-04-13 04:00] VITALS: BP 104/61
[2021-04-13 07:50] VITALS: BP 123/57
[2021-04-13] MEDS ORDERED: CEFDINIR300 MG PO (10:36)
[2021-04-13 11:25] VITALS: BP 123/57
[2021-04-13 11:30] VITALS: BP 134/78
[2021-04-13 11:43] LABS: ALBUMIN 2.7 g/dL (3.4-5.0); CALCIUM 8.5 mg/dL (8.5-10.1); CREATININE 4.7 mg/dL (0.6-1.3); POTASSIUM 4.8 mmol/L (3.5-5.1); TOTAL BILIRUBIN 0.5 mg/dL (<0.1-1.0); TOTAL PROTEIN 6.6 g/dL (6.4-8.2)
== END 2021-04-13 15:08 | disposition home or self-care (01) | DRG 602 ==
LOC: M.ERS 12:55 → M.2W 15:20 → M.TBA-ER 15:20 → M.2W 19:36
PROVIDERS: Physician Assistant; ADMIT Internal Medicine; ATTEND Internal Medicine
PROC: 5A1D70Z Performance of Urinary Filtration, Intermittent, Less than 6 Hours Per Day (ICD-10-PCS; principal; 2021-04-12)
DX: L03.116 Cellulitis of left lower limb (principal); N18.6 End stage renal disease; I50.31 Acute diastolic (congestive) heart failure; N17.0 Acute kidney failure with tubular necrosis; I13.2 Hypertensive heart and chronic kidney disease with heart failure and with stage 5 chronic kidney disease, or end stage renal disease; E87.1 Hypo-osmolality and hyponatremia; L97.429 Non-pressure chronic ulcer of left heel and midfoot with unspecified severity; I48.20 Chronic atrial fibrillation, unspecified; L03.115 Cellulitis of right lower limb; Z20.822 Contact with and (suspected) exposure to COVID-19; M10.9 Gout, unspecified; I48.91 Unspecified atrial fibrillation; I87.2 Venous insufficiency (chronic) (peripheral); E87.70 Fluid overload, unspecified; D64.9 Anemia, unspecified; E87.5 Hyperkalemia; I35.0 Nonrheumatic aortic (valve) stenosis; Z60.2 Problems related to living alone; Z28.21 Immunization not carried out because of patient refusal; Z88.8 Allergy status to other drugs, medicaments and biological substances; Z99.2 Dependence on renal dialysis